=== PATIENT | female | born 1985 | race Caucasian/White ===

== ENCOUNTER 2016-11-04 16:16 | Inpatient (IN) ==
--- NOTE | 2016-11-04 16:24 | Emergency Department Note ---
Disposition Clinical Impression: Suicidal ideation Depression Qualifiers: Depression Type: unspecified Qualified Code(s): F32.9 - Major depressive disorder, single episode, unspecified Disposition: Admitted As Inpatient Condition: Good Forms: ED Satisfaction Letter Time of Disposition: 19:42 Psych HPI - General Chief Complaint: ED Psychiatric Symptoms Stated Complaint: 1A Eval Time Seen by Provider: 11/04/16 16:18 Source: patient, family Mode of arrival: ambulatory Limitations: no limitations Nursing Notes Reviewed: Yes Vital Signs Reviewed: Yes - History of Present Illness HPI Narrative: 31-year-old female with a history of depression comes in with suicidal ideation. She states that she tried to take a bottle sleeping pills last night but her significant other took them away from her and she was not able to take them. Family doctor today she was still complaining of suicidal ideation and she was sent here for evaluation. Pt complaint: suicidal ideation, feels depressed If medical clearance, reason: psychiatric condition Onset (ago): Just [employer] Duration: constant History of similar episodes: Yes Improves with: none Worsens with: none Context: significant life stressor Associated Psychiatric Symptoms: depression, suicidal ideation Associated symptoms: Reports: denies other symptoms Traumatic symptoms: denies traumatic injury Treatments prior to arrival: none - Related Data Home Medications Medication Instructions Recorded Confirmed Desvenlafaxine Fumarate 50 mg PO DAILY 11/17/15 09/13/16 [Desvenlafaxine Fumarate ER] Estradiol 2 mg PO DAILY 11/17/15 09/13/16 Topiramate [Topamax] 100 mg PO BID 11/17/15 09/13/16 Buspirone HCl [Buspar] 30 mg PO BID 09/13/16 09/13/16 Zaleplon [Sonata] 10 mg PO DAILY 09/13/16 09/13/16 Ziprasidone HCl [Geodon] 60 mg PO BID 09/13/16 09/13/16 Allergies Allergy/AdvReac Type Severity Reaction Status Date / Time Penicillins Allergy Difficulty Verified 11/04/16 16:25 Breathing Constitutional: Denies: fever, chills, weakness, weight change Eyes: Denies: eye pain, eye discharge, vision change ENT ED: Denies: ear pain, throat pain, dental pain, hearing loss, epistaxis, congestion, dysphagia Cardiovascular: Denies: chest pain, palpitations, dyspnea on exertion, edema, syncope Respiratory: Denies: cough, dyspnea, wheezes, hemoptysis, stridor Gastrointestinal: Denies: abdominal pain, nausea, vomiting, diarrhea, constipation, hematemesis, melena, hematochezia Genitourinary: Denies: dysuria, frequency, hematuria, discharge Musculoskeletal: Denies: back pain, neck pain, arthralgia, myalgia Integumentary: Denies: rash, abrasion, lesions Neurological: Denies: headache, weakness, numbness, paresthesias, confusion, abnormal gait, vertigo Psychiatric: Reports: depression, suicidal thoughts. Denies: anxiety, homicidal thoughts, auditory hallucinations, visual hallucinations Endocrine: Denies: fatigue Hematological/Lymphatic: Denies: easy bleeding, easy bruising Allergic/Immunologic: Denies: facial swelling, urticaria Past Medical History - Past Medical History Medical history: Reports: GERD, migraine, other Surgical history: Reports: cholecystectomy, hysterectomy Psychiatric history: Reports: anxiety, bipolar, depression CASING MAN history: Reports: non-contributory - Social History Smoking Status: Current every day smoker Smokeless Tobacco Status: No Alcohol use: Reports: occasionally Drug use: Reports: none Physical Exam - General Limitations: no limitations General appearance: alert, in no apparent distress - Head Head exam: atraumatic, normocephalic, normal inspection - Eye Eye exam: Present: normal appearance, PERRL, EOMI - ENT ENT exam: normal exam, normal oropharynx, mucous membranes moist - Neck Neck exam: Present: normal inspection, full ROM, trachea midline - Chest Chest inspection: Present: normal inspection, symmetric chest wall rise - Respiratory Respiratory exam: Present: normal lung sounds bilaterally - Cardiovascular Cardiovascular exam: Present: regular rate, normal rhythm, normal heart sounds - Abdominal Exam Abdominal exam: Present: soft, Non-Tender. Absent: tenderness, distention, guarding, rebound, rigidity - Extremities Exam Extremities exam: Present: normal inspection, full ROM. Absent: tenderness, pedal edema - Expanded Lower Extremity Exam Neurovascular/Tendon exam: Absent: motor deficit, sensory deficit, tendon deficit Gait: observed and normal - Back Exam Back exam: Present: normal inspection, full ROM. Absent: tenderness - Neurological Exam Neurological exam: Present: alert, oriented X3. Absent: motor sensory deficit - Psychiatric Psychiatric exam: Present: depressed, suicidal ideation - Skin Skin exam: Present: warm, dry, intact, normal color Course - Reevaluation(s) Reevaluation #1: 31-year-old with history depression and attempted to take 7 pills in a suicide attempt. Continues to have suicidal ideation. Patient was evaluated by psychiatry and will be admitted. Time: 19:41 Vital Signs Temperature 98.6 F 11/04/16 16:22 Pulse Rate 59 11/04/16 16:22 Respiratory Rate 16 11/04/16 16:22 Blood Pressure 111/76 11/04/16 16:22 O2 Sat by Pulse Oximetry 97 11/04/16 16:22 Temperature 98.6 F 11/04/16 16:22 Pulse Rate 59 11/04/16 16:22 Respiratory Rate 16 11/04/16 16:22 Blood Pressure 111/76 11/04/16 16:22 O2 Sat by Pulse Oximetry 97 11/04/16 16:22 Oxygen Delivery Oxygen Delivery Room Air Psych - Lab Data Result diagrams: 11/04/16 16:31 11/04/16 16:31 Lab Results 11/04/16 11/04/16 11/04/16 Range/Units 16:31 16:31 16:31 WBC 9.9 (4.3-11.1) K/mcL RBC 4.13 (3.82-4.97) M/mcL Hgb 12.7 (11.5-15.4) g/dL Hct 38.0 (35.3-44.9) % MCV 92.0 (83.0-100.0) fL MCH 30.8 (28.0-33.3) pg MCHC 33.4 (31.6-35.5) g/dL RDW 12.5 (11.5-14.5) % Plt Count 208 (140-400) K/mcL MPV 9.8 (9.4-12.4) fL Immature Gran % 0.3 (0-4) % Seg Neutrophils % 64.3 % Lymphocytes % 27.8 % Monocytes % 5.8 % Eosinophils % 1.3 % Basophils % 0.5 % Neutrophils # 6.4 (1.6-8.9) K/mcL Lymphocytes # 2.8 (0.6-4.6) K/mcL Monocytes # 0.6 (0.0-1.3) K/mcL Eosinophils # 0.1 (0.0-0.6) K/mcL Basophils # 0.1 (0.0-0.2) K/mcL Sodium 140 (136-145) mEq/L Potassium 3.8 (3.5-4.5) mEq/L Chloride 113 H (98-109) mEq/L Carbon Dioxide 17 L (19-29) mEq/L BUN 13 (7-20) mg/dL Creatinine 1.23 H (0.57-1.11) mg/dL Est GFR ( Amer) > 60 (> 60) Est GFR (Non-Af Amer) 51 L (> 60) BUN/Creatinine Ratio 11 (6-26) Glucose 88 (70-99) mg/dL Calculated Osmolality 290 (280-300) Calcium 9.1 (8.6-10.8) mg/dL Serum , Qual Negative (Negative) Urine Color (Yellow) Urine Clarity (Clear) Urine pH (5.0-8.0) pH Units Ur Specific [place] (1.010-1.025) Urine Protein (Neg-Trace) mg/dL Urine Glucose (UA) (Normal) mg/dL Urine Ketones (Negative) mg/dL Urine Blood (Negative) Urine Nitrite (Negative) Urine Bilirubin (Negative) Urine Urobilinogen (Normal) mg/dL Ur Leukocyte Esterase (Negative) Urine Microscopic RBC (0-3) per hpf Urine Microscopic WBC (0-3) per hpf Ur Squamous Epith Cells (None-Few) per lpf Urine Bacteria (None-Few) per hpf Hyaline Casts (None-Few) per lpf Salicylates < 5.0 L (15-30) mg/dL Urine Opiates Screen (Garbnx=179) ng/mL Acetaminophen < 1.0 L (10-30) mcg/mL Ur Barbiturates Screen (Kmwadl=584) ng/mL Ur Phencyclidine Scrn (Cutoff=25) ng/mL Ur Amphetamines Screen (Fhwtgw=5267) ng/mL U Benzodiazepines Scrn (Tlzieh=534) ng/mL Urine Cocaine Screen (Cutoff= 300) ng/mL U Marijuana (THC) Screen (Cutoff = 50) ng/mL Ethyl Alcohol < 10 (0-10) mg/dL 11/04/16 11/04/16 Range/Units 16:45 16:45 WBC (4.3-11.1) K/mcL RBC (3.82-4.97) M/mcL Hgb (11.5-15.4) g/dL Hct (35.3-44.9) % MCV (83.0-100.0) fL MCH (28.0-33.3) pg MCHC (31.6-35.5) g/dL RDW (11.5-14.5) % Plt Count (140-400) K/mcL MPV (9.4-12.4) fL Immature Gran % (0-4) % Seg Neutrophils % % Lymphocytes % % Monocytes % % Eosinophils % % Basophils % % Neutrophils # (1.6-8.9) K/mcL Lymphocytes # (0.6-4.6) K/mcL Monocytes # (0.0-1.3) K/mcL Eosinophils # (0.0-0.6) K/mcL Basophils # (0.0-0.2) K/mcL Sodium (136-145) mEq/L Potassium (3.5-4.5) mEq/L Chloride (98-109) mEq/L Carbon Dioxide (19-29) mEq/L BUN (7-20) mg/dL Creatinine (0.57-1.11) mg/dL Est GFR ( Amer) (> 60) Est GFR (Non-Af Amer) (> 60) BUN/Creatinine Ratio (6-26) Glucose (70-99) mg/dL Calculated Osmolality (280-300) Calcium (8.6-10.8) mg/dL Serum , Qual (Negative) Urine Color Yellow (Yellow) Urine Clarity Cloudy A (Clear) Urine pH 6.0 (5.0-8.0) pH Units Ur Specific [place] 1.015 (1.010-1.025) Urine Protein Negative (Neg-Trace) mg/dL Urine Glucose (UA) Normal (Normal) mg/dL Urine Ketones Negative (Negative) mg/dL Urine Blood Negative (Negative) Urine Nitrite Negative (Negative) Urine Bilirubin Negative (Negative) Urine Urobilinogen Normal (Normal) mg/dL Ur Leukocyte Esterase Negative (Negative) Urine Microscopic RBC 0-3 (0-3) per hpf Urine Microscopic WBC 0-3 (0-3) per hpf Ur Squamous Epith Cells Many H (None-Few) per lpf Urine Bacteria Few (None-Few) per hpf Hyaline Casts None Seen (None-Few) per lpf Salicylates (15-30) mg/dL Urine Opiates Screen Negative (Ycfrrn=989) ng/mL Acetaminophen (10-30) mcg/mL Ur Barbiturates Screen Negative (Lnvnat=235) ng/mL Ur Phencyclidine Scrn Negative (Cutoff=25) ng/mL Ur Amphetamines Screen Negative (Mwzmve=8876) ng/mL U Benzodiazepines Scrn Negative (Tomaxf=307) ng/mL Urine Cocaine Screen Negative (Cutoff= 300) ng/mL U Marijuana (THC) Screen Negative (Cutoff = 50) ng/mL Ethyl Alcohol (0-10) mg/dL Psychiatric Medical Clearance - Medical Clearance Checklist Medical History: Bronchitis (Inactive) Insect bites (Inactive) Urinary tract infection (Inactive) No Social History Section defined Current Vitals: Last Vital Signs Temp 98.6 F 11/04/16 16:22 Pulse 59 11/04/16 16:22 Resp 16 11/04/16 16:22 BP 111/76 11/04/16 16:22 Pulse Ox 97 11/04/16 16:22 Psychiatric Lab Panel: Drug Levels and Toxicity 11/04/16 11/04/16 16:31 16:45 Urine Opiates Screen Negative Acetaminophen < 1.0 L Ur Barbiturates Screen Negative Ur Phencyclidine Scrn Negative Ur Amphetamines Screen Negative U Benzodiazepines Scrn Negative Urine Cocaine Screen Negative U Marijuana (THC) Screen Negative Ethyl Alcohol < 10 Abnormal Labs: Abnormal lab results Chloride 113 mEq/L (98-109) H 11/04/16 16:31 Carbon Dioxide 17 mEq/L (19-29) L 11/04/16 16:31 Creatinine 1.23 mg/dL (0.57-1.11) H 11/04/16 16:31 Est GFR (Non-Af Amer) 51 (> 60) L 11/04/16 16:31 Urine Clarity Cloudy (Clear) A 11/04/16 16:45 Ur Squamous Epith Cells Many per lpf (None-Few) H 11/04/16 16:45 Salicylates < 5.0 mg/dL (15-30) L 11/04/16 16:31 Acetaminophen < 1.0 mcg/mL (10-30) L 11/04/16 16:31 Statement of Medical Clearance: I have evaluated the patient, reviewed diagnostic information, and certify that the patient's medical condition is sufficiently stable that transfer to the psychiatric unit does not pose a significant risk of deterioration.
[2016-11-04 16:37] LABS: Basophils # 0.1 K/mcL (0.0-0.2); Basophils % 0.5 %; Eosinophils # 0.1 K/mcL (0.0-0.6); Eosinophils % 1.3 %; Hemoglobin 12.7 g/dL (11.5-15.4); Immature Granulocytes % 0.3 % (0-4); Lymphocytes # 2.8 K/mcL (0.6-4.6); Lymphocytes % 27.8 %; Mean Corpuscular HGB Conc 33.4 g/dL (31.6-35.5); Mean Corpuscular Hemoglobin 30.8 pg (28.0-33.3); Mean Platelet Volume 9.8 fL (9.4-12.4); Monocytes # 0.6 K/mcL (0.0-1.3); Monocytes % 5.8 %; Neutrophils # 6.4 K/mcL (1.6-8.9); Platelet Count 208 K/mcL (140-400); Red Blood Count 4.13 M/mcL (3.82-4.97); Red Cell Distribution Width 12.5 % (11.5-14.5); Segmented Neutrophils % 64.3 %
[2016-11-04 16:51] LABS: Bilirubin,Urine Negative (Negative); Blood,Urine Negative (Negative); Clarity,Urine Cloudy (Clear); Color,Urine Yellow (Yellow); Glucose,Urine (UA) Normal (Normal); Ketones,Urine Negative (Negative); Leukocyte Esterase,Urine Negative (Negative); Nitrite,Urine Negative (Negative); Protein,Urine Negative (Neg-Trace); Specific Gravity,Urine 1.015 (1.010-1.025); Urobilinogen,Urine Normal (Normal)
[2016-11-04 16:52] LABS: Bacteria,Urine Few per hpf (None-Few); Hyaline Casts,Urine None Seen per lpf (None-Few); RBC,Urine 0-3 per hpf (0-3); Squamous Epithelial Cell,Urine Many per lpf (None-Few); WBC,Urine 0-3 per hpf (0-3)
[2016-11-04 16:57] LABS: Amphetamine Screen,Urine Negative ng/mL (Cutoff=1000); Barbiturate Screen,Urine Negative ng/mL (Cutoff=200); Benzodiazepines Screen,Urine Negative ng/mL (Cutoff=200); Cannabinoid Screen,Urine Negative ng/mL (Cutoff = 50); Cocaine Screen,Urine Negative ng/mL (Cutoff= 300); Opiate Screen,Urine Negative ng/mL (Cutoff=300); Phencyclidine Screen,Urine Negative ng/mL (Cutoff=25)
[2016-11-04 16:59] LABS: BUN/Creatinine Ratio 11 (6-26); Blood Urea Nitrogen 13 mg/dL (7-20); Calcium 9.1 mg/dL (8.6-10.8); Carbon Dioxide 17 mEq/L (19-29); Chloride 113 mEq/L (98-109); Glucose 88 mg/dL (70-99); Osmolality,Calculated 290 (280-300); Potassium 3.8 mEq/L (3.5-4.5); Sodium 140 mEq/L (136-145); eGFR For African Americans > 60 (> 60); eGFR For Non-African Americans 51 (> 60)
[2016-11-04 17:00] LABS: Acetaminophen < 1.0 mcg/mL (10-30); Ethanol < 10 mg/dL (0-10); Salicylate < 5.0 mg/dL (15-30)
[2016-11-04] MEDS ORDERED: hydrOXYzine pamoate 25 MG CAPSULE PO STA (19:23)
[2016-11-04] MEDS ORDERED: Haloperidol Lactate 5 MG/ML VIAL IM PRN (20:15)
[2016-11-04] MEDS ORDERED: Mag Hydrox/Al Hydrox/Simeth 30 ML UDC PO PRN (20:15)
[2016-11-04] MEDS ORDERED: Ibuprofen 400 MG TABLET PO PRN (20:15)
[2016-11-04] MEDS ORDERED: *HR* LORazepam 2 MG/ML VIAL IM PRN (20:15)
[2016-11-04] MEDS ORDERED: *HR* LORazepam 1 MG TABLET PO PRN (20:15)
[2016-11-04] MEDS ORDERED: hydrOXYzine pamoate 25 MG CAPSULE PO PRN (20:15)
[2016-11-04] MEDS ORDERED: MOM Conc 10 ML UD.LIQ PO PRN (21:00)
[2016-11-04] MEDS: Nicotine 2 MG GUM BC PRN (21:57)
[2016-11-04] MEDS: traZODone 50 MG TABLET PO PRN (21:57)
[2016-11-05] MEDS ORDERED: hydrOXYzine pamoate 25 MG CAPSULE PO PRN (10:14)
[2016-11-05] MEDS ORDERED: clonazePAM 0.5 MG TABLET PO PRN (10:28)
--- NOTE | 2016-11-05 10:32 | Psychiatry History & Physical ---
Date of Encounter: 11/05/16 Time of Encounter: 09:30 History of Present Illness Patient Stated Chief Complaint: Suicidal, auditory and visual hallucinations Medicare Admission Attestation: For traditional Medicare patients the provided hospital inpatient services are reasonable and necessary and in the case of services not specified as inpatient -only under 42 CFR 419.22 (n), that they are appropriately provided as inpatient services in accordance 42 CFR 412.3. For Critical Access Hospital the patient may reasonably be expected to be discharged or transferred to a hospital within 96 hours after admission to the Critical Access Hospital. Admitted From: Emergency Dept History of Present Illness: Ms. Alba is a 31 year old female admitted from the emergency department for evaluation treatment of suicidal ideation and auditory and visual hallucinations. Patient was reported to attempt to overdose on sleeping medication and was stopped by her she was combative and agitated with him. Patient reports long history of psychiatric treatment since she was 15 she was hospitalized for overdose at the age since then she was seen by psychiatrist as outpatient and she reports recently feeling frustrated because her auditory and visual hallucination continue and her suicidal ideation become intense patient states she is compliant with medication but feel it is ineffective. 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 Past Med Surg Social Fam HX - Past Medical History Medical history: GERD, migraine, other - Past Psychiatric History Psychiatric history: Reports: anxiety, depression, prior suicide attempt, schizophrenia, previous psychiatric hospitalization Past psychiatric history details: Hospitalized at age [age] years old in [place] overdose on medication - Past Surgical History Surgical History: cholecystectomy, hysterectomy - Social History Smoking Status: Current every day smoker Smokeless Tobacco Status: No Alcohol use: occasionally Drug use: none Medications & Allergies Estradiol 2 mg PO DAILY 11/17/15 [History] Topiramate [Topamax] 100 mg PO BID 11/17/15 [History] Buspirone HCl [Buspar] 30 mg PO BID 09/13/16 [History] Zaleplon [Sonata] 10 mg PO DAILY 09/13/16 [History] Ziprasidone HCl [Geodon] 60 mg PO BID 09/13/16 [History] Desvenlafaxine Succinate [Pristiq ER] 50 mg PO DAILY 11/04/16 [History] clonazePAM [Klonopin] 0.25 mg PO QAM 11/04/16 [History] clonazePAM [Klonopin] 0.5 mg PO QPM 11/04/16 [History] hydrOXYzine HCl [Hydroxyzine HCl] 25 mg PO BID PRN 11/04/16 [History] 3 Allergy/AdvReac Type Severity Reaction Status Date / Time Penicillins Allergy Difficulty Verified 11/04/16 16:25 Breathing Review of Systems Psychiatric: Reports: depression, anxiety, auditory hallucinations, visual hallucinations Mental Status Exam Patient orientation: Yes Person, Yes Time, Yes Place Level of alertness: Alert Patient appearance: Appropriate, Well Groomed Behavior: calm, cooperative, anxious, guarded, dramatic Psychomotor activity: Slowed Eye contact: Maintains Eye Contact Mood description: Depressed, Irritable Affect description: congruent with mood, constricted, dysphoric Speech pattern: Normal rate, Normal rhythm, Normal tone, Includes Profanity Speech volume: Normal Thought process: Linear, Goal Oriented, Thought Blocking Thought content: Yes Suicidal ideation, No Homicidal ideation, No Overt delusions Perceptual disturbances: Yes Auditory hallucinations, Yes Visual hallucinations Attention span: Capable of Focused Attention Memory description: Grossly Intact Patient reliability: Reliable Historian Intelligence estimate: Average Judgment: Limited Insight: Partial Results - Vital Signs Vital signs: Temp Pulse Resp BP Pulse Ox 97.6 F 53 16 104/58 97 11/05/16 09:19 11/05/16 09:19 11/05/16 09:19 11/05/16 09:19 11/04/16 16:22 - Labs Labs: Laboratory Last Values WBC 9.9 K/mcL (4.3-11.1) 11/04/16 16:31 RBC 4.13 M/mcL (3.82-4.97) 11/04/16 16:31 Hgb 12.7 g/dL (11.5-15.4) 11/04/16 16:31 Hct 38.0 % (35.3-44.9) 11/04/16 16:31 MCV 92.0 fL (83.0-100.0) 11/04/16 16:31 MCH 30.8 pg (28.0-33.3) 11/04/16 16:31 MCHC 33.4 g/dL (31.6-35.5) 11/04/16 16:31 RDW 12.5 % (11.5-14.5) 11/04/16 16:31 Plt Count 208 K/mcL (140-400) 11/04/16 16:31 MPV 9.8 fL (9.4-12.4) 11/04/16 16:31 Immature Gran % 0.3 % (0-4) 11/04/16 16:31 Seg Neutrophils % 64.3 % 11/04/16 16:31 Lymphocytes % 27.8 % 11/04/16 16:31 Monocytes % 5.8 % 11/04/16 16:31 Eosinophils % 1.3 % 11/04/16 16:31 Basophils % 0.5 % 11/04/16 16:31 Neutrophils # 6.4 K/mcL (1.6-8.9) 11/04/16 16:31 Lymphocytes # 2.8 K/mcL (0.6-4.6) 11/04/16 16:31 Monocytes # 0.6 K/mcL (0.0-1.3) 11/04/16 16:31 Eosinophils # 0.1 K/mcL (0.0-0.6) 11/04/16 16:31 Basophils # 0.1 K/mcL (0.0-0.2) 11/04/16 16:31 Sodium 140 mEq/L (136-145) 11/04/16 16:31 Potassium 3.8 mEq/L (3.5-4.5) 11/04/16 16:31 Chloride 113 mEq/L (98-109) H 11/04/16 16:31 Carbon Dioxide 17 mEq/L (19-29) L 11/04/16 16:31 BUN 13 mg/dL (7-20) 11/04/16 16:31 Creatinine 1.23 mg/dL (0.57-1.11) H 11/04/16 16:31 Est GFR ( Amer) > 60 (> 60) 11/04/16 16:31 Est GFR (Non-Af Amer) 51 (> 60) L 11/04/16 16:31 BUN/Creatinine Ratio 11 (6-26) 11/04/16 16:31 Glucose 88 mg/dL (70-99) 11/04/16 16:31 Calculated Osmolality 290 (280-300) 11/04/16 16:31 Calcium 9.1 mg/dL (8.6-10.8) 11/04/16 16:31 Serum , Qual Negative (Negative) 11/04/16 16:31 Urine Color Yellow (Yellow) 11/04/16 16:45 Urine Clarity Cloudy (Clear) A 11/04/16 16:45 Urine pH 6.0 pH Units (5.0-8.0) 11/04/16 16:45 Ur Specific [place] 1.015 (1.010-1.025) 11/04/16 16:45 Urine Protein Negative mg/dL (Neg-Trace) 11/04/16 16:45 Urine Glucose (UA) Normal mg/dL (Normal) 11/04/16 16:45 Urine Ketones Negative mg/dL (Negative) 11/04/16 16:45 Urine Blood Negative (Negative) 11/04/16 16:45 Urine Nitrite Negative (Negative) 11/04/16 16:45 Urine Bilirubin Negative (Negative) 11/04/16 16:45 Urine Urobilinogen Normal mg/dL (Normal) 11/04/16 16:45 Ur Leukocyte Esterase Negative (Negative) 11/04/16 16:45 Urine Microscopic RBC 0-3 per hpf (0-3) 11/04/16 16:45 Urine Microscopic WBC 0-3 per hpf (0-3) 11/04/16 16:45 Ur Squamous Epith Cells Many per lpf (None-Few) H 11/04/16 16:45 Urine Bacteria Few per hpf (None-Few) 11/04/16 16:45 Hyaline Casts None Seen per lpf (None-Few) 11/04/16 16:45 Salicylates < 5.0 mg/dL (15-30) L 11/04/16 16:31 Urine Opiates Screen Negative ng/mL (Swkijd=860) 11/04/16 16:45 Acetaminophen < 1.0 mcg/mL (10-30) L 11/04/16 16:31 Ur Barbiturates Screen Negative ng/mL (Zzurbp=142) 11/04/16 16:45 Ur Phencyclidine Scrn Negative ng/mL (Cutoff=25) 11/04/16 16:45 Ur Amphetamines Screen Negative ng/mL (Crtyoa=6576) 11/04/16 16:45 U Benzodiazepines Scrn Negative ng/mL (Ffccdn=991) 11/04/16 16:45 Urine Cocaine Screen Negative ng/mL (Cutoff= 300) 11/04/16 16:45 U Marijuana (THC) Screen Negative ng/mL (Cutoff = 50) 11/04/16 16:45 Ethyl Alcohol < 10 mg/dL (0-10) 11/04/16 16:31 Assessment and Plan (1) Depression Current visit: Yes Status: Acute Plan: Admit inpatient for safety and stabilization, Close observation, Suicide Precautions per unit protocol, Encourage participation in unit milieu, Group Therapy, Monitor sleep, Monitor appetite Additional Plan: 1. Start Abilify 5 mg daily 2. Decrease Geodon to 60 mg daily at bedtime 3. Change Klonopin to when necessary 4. Replace Pristiq with Effexor XR 75 mg daily Risks, benefits, side effects, alternatives discussed w/pt: Yes Patient agreeable to treatment: Yes Qualifiers: Depression Type: major depressive disorder Major depression recurrence: recurrent Major depression episode severity: severe Psychotic features: with psychotic features Qualified Code(s): F33.3 - Major depressive disorder, recurrent, severe with psychotic symptoms
[2016-11-05] MEDS: ARIPiprazole 5 MG TABLET PO SCH (11:31)
[2016-11-05] MEDS: Venlafaxine XR (24 HR) 75 MG CAP.ER.24H PO SCH (11:31)
[2016-11-05] MEDS ORDERED: clonazePAM 0.5 MG TABLET PO SCH (18:00)
[2016-11-05] MEDS: Nicotine 2 MG GUM BC PRN (19:13)
[2016-11-05] MEDS: Topiramate 100 MG TABLET PO SCH (20:12)
[2016-11-05] MEDS: traZODone 50 MG TABLET PO PRN (20:14)
[2016-11-05] MEDS ORDERED: ZIPRASIDONE HCL 60 MG PO SCH (21:00)
[2016-11-05] MEDS ORDERED: Ziprasidone 20 MG CAPSULE PO SCH (21:00)
[2016-11-06] MEDS ORDERED: Venlafaxine XR (24 HR) 75 MG CAP.ER.24H PO SCH (09:00)
[2016-11-06] MEDS: Venlafaxine XR (24 HR) 75 MG CAP.ER.24H PO SCH (09:41)
[2016-11-06] MEDS: ARIPiprazole 5 MG TABLET PO SCH (09:42)
[2016-11-06] MEDS: Topiramate 100 MG TABLET PO SCH (09:42)
[2016-11-06 10:07] VITALS: BP 105/55
[2016-11-06] MEDS: Nicotine 2 MG GUM BC PRN (10:09)
--- NOTE | 2016-11-06 13:20 | Discharge Summary ---
Date of Encounter: 11/06/16 Time of Encounter: 13:13 Diagnosis - Discharge Diagnosis (1) Depression Status: Acute Qualifiers: Depression Type: major depressive disorder Major depression recurrence: recurrent Major depression episode severity: severe Psychotic features: with psychotic features Qualified Code(s): F33.3 - Major depressive disorder, recurrent, severe with psychotic symptoms Medications - Discharge Medications Prescriptions: ARIPiprazole [Abilify] 5 mg PO DAILY #30 tablet clonazePAM [Klonopin] 0.5 mg PO TID PRN #30 tablet PRN Reason: Anxiety Venlafaxine XR (24 HR) [Effexor XR] 75 mg PO DAILY #30 cap.er.24h Estradiol 2 mg PO DAILY 11/17/15 [History] Topiramate [Topamax] 100 mg PO BID 11/17/15 [History] Buspirone HCl [Buspar] 30 mg PO BID 09/13/16 [History] Zaleplon [Sonata] 10 mg PO DAILY 09/13/16 [History] ARIPiprazole [Abilify] 5 mg PO DAILY #30 tablet 11/06/16 [Rx] Venlafaxine XR (24 HR) [Effexor XR] 75 mg PO DAILY #30 cap.er.24h 11/06/16 [Rx] Ziprasidone [Geodon] 60 mg PO HS capsule 11/06/16 [Rx] clonazePAM [Klonopin] 0.5 mg PO TID PRN #30 tablet 11/06/16 [Rx] 3 Allergy/AdvReac Type Severity Reaction Status Date / Time Penicillins Allergy Difficulty Verified 11/04/16 16:25 Breathing Provider Date of admission: 11/04/16 19:46 Primary care physician: PCP NONE Discharging clinician: Frederick Nichols Assessment and Plan - Patient/Caregiver Discharge Instructions Activity: resume usual activities as tolerated Diet: regular diet - Follow up Plan Follow up with: Damian Dudley [facility] [Outside] - 11/17/16 1:30 pm (The above appointment is with Amrik. When you come to your first appointment, you will be completing paperwork, meeting with a counselor, and developing a treatment plan. You will receive follow-up appointments for on-going counseling services. You were also scheduled to see Erika Juárez on 12/08/2016 at 8: 00am for outpatient psychiatric assessment and medication management services. Please bring the following with you to your first visit to the clinic: 1) proof of household income (two consecutive pay stubs, social security award letter, bank statement, statement letter from [facility], child support statement, IRS 1040 or W2 form, or a statement from the person who financially supports you stating they help provide for your basic needs), 2) proof of residency ( drivers license, a piece of mail showing your address, a statement from person you live with verifying you live at their address), 3) your social security card , 4) photo ID, 5) your insurance card (if you have commercial insurance you must call to obtain a prior authorization number before you arrive to your first appointment) and 6) if you do not have insurance but have applied for Medicaid, please bring verification you have applied. This is the first available appointment. You may contact the office regularly to check for cancellations that may allow you to be seen sooner. ) Functional capacity at discharge: independent ambulation Overall status at discharge: Stable Disposition: Home, Self-Care Hospital Course Hospital course: Ms. Alba is a 31 year old female admitted from the emergency department after attempting overdose on medication to kill herself. Patient had history of suicide attempt when she was 15 years old. For details of the admission please see H&P On the unit patient medication were adjusted to Geodon was reduced to 60 mg at bedtime and we added Abilify 5 mg daily. Patient responded well to medication changes reported no auditory or visual hallucinations denied any suicidal ideation and participated in some activities and reported improved sleep. Patient was advised to continue hospitalization and stabilization however she insisted on being discharged in order for her to keep her job and she is scheduled to work tomorrow. On discharge patient was medically stable tolerated the medication denied any side effects, her discharge and follow-up plans were completed by social work. - Time Spent with Patient Total time spent providing and/or coordinating discharge services: Greater than 30 minutes Quality - Multiple Antipsychotics Patient discharged on 2 or more antipsychotic medications: No Procedures - Procedures Procedures: Medication Management, Crisis Stabilization, Supportive Therapy, Group Therapy, Psychoeducational Therapy Mental Status Exam - Mental Status Exam Patient orientation: Yes Person, Yes Time, Yes Place Level of alertness: Alert Patient appearance: Appropriate, Well Groomed Behavior: calm, cooperative Psychomotor activity: Normal Eye contact: Maintains Eye Contact Mood description: Euthymic/stable Affect description: congruent with mood, full range Speech pattern: Normal rate, Normal rhythm, Normal tone Speech Volume: Normal Thought process: Linear, Goal Oriented Thought Content: No Suicidal ideation, No Homicidal ideation, No Overt delusions Perceptual Disturbances: No Auditory hallucinations, No Visual hallucinations Judgment: Limited Insight: Partial
== END 2016-11-06 16:10 | disposition home or self-care (01) | DRG 751 ==
LOC: EMEROO 16:16 → 1ANU 19:46
PROVIDERS: ADMIT Psychiatry & Neurology Psychiatry; ATTEND Psychiatry & Neurology Psychiatry

== ENCOUNTER 2017-03-25 06:13 | Inpatient (IN) ==
[2017-03-25] MEDS ORDERED: Ibuprofen 400 MG TABLET PO PRN (06:34)
[2017-03-25] MEDS ORDERED: *HR* LORazepam 2 MG/ML VIAL IM PRN (06:34)
[2017-03-25] MEDS ORDERED: Nicotine 2 MG GUM BC PRN (06:34)
[2017-03-25] MEDS ORDERED: hydrOXYzine pamoate 25 MG CAPSULE PO PRN (06:34)
[2017-03-25] MEDS ORDERED: *HR* LORazepam 1 MG TABLET PO PRN (06:34)
[2017-03-25] MEDS ORDERED: Haloperidol Lactate 5 MG/ML VIAL IM PRN (06:34)
[2017-03-25] MEDS ORDERED: MOM Conc 10 ML UD.LIQ PO PRN (06:34)
[2017-03-25] MEDS ORDERED: Mag Hydrox/Al Hydrox/Simeth 30 ML UDC PO PRN (06:34)
[2017-03-25] MEDS ORDERED: traZODone 50 MG TABLET PO PRN (06:34)
--- NOTE | 2017-03-25 16:35 | Psychiatry History & Physical ---
Date of Encounter: 03/25/17 Time of Encounter: 16:00 History of Present Illness Patient Stated Chief Complaint: i want to go home Medicare Admission Attestation: For traditional Medicare patients the provided hospital inpatient services are reasonable and necessary and in the case of services not specified as inpatient -only under 42 CFR 419.22 (n), that they are appropriately provided as inpatient services in accordance 42 CFR 412.3. For Critical Access Hospital the patient may reasonably be expected to be discharged or transferred to a hospital within 96 hours after admission to the Critical Access Hospital. Admitted From: Emergency Dept Plans for Post Hospital Care: Home History of Present Illness: Ms. Alba is a 31 year old female Patient reports that he was she was in her usual state of mood. She says that she is awoken by her after taking medicines and that he could have made her take say anything. Patient was evaluated by mental [facility] and placed on a pink slip because she stated that she would take an overdose or cut her wrist with box cutters. Patient denies this. The patient's history is significant for a diagnosis of either bipolar disorder or in October 2016 she was diagnosed with major depressive disorder severe with psychosis. The patient says that her medicines were being tapered down and that she did not problem and in fact that she is not suicidal and she should leave in fact she is going to walk 35 miles in the dark because she is prepared. The patient reported no mood problems she notes ups and downs and 12 years of marriage. Additional history was collected from the patient's he reported that she has had significant mood swings since an adjustment medicine she has been self administering her medicine and Ativan or lorazepam and sometimes is amnestic for things that occur. The patient's past psychiatric history significant for one hospitalization here one hospitalization for 1 week in [facility] after trying to jump out a moving car. This was for 10 days. Past medical history surgeries include gallbladder hysterectomy. Allergies to penicillin. Patient has an illness migraine headaches she has been on Peter venlafaxine Geodon reduction and Topamax and Xanax she is followed by her primary care doctor. She may have also been on estrogen. She is stably employed and did not want to miss work. 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 She has been 12 years. Her works outside the home transporting others. She felt that he was leaving in the hospital babysat however the reported that he did have to make one run for approximately 12 hours on 1 day. There are 2 children in the home. Patient noted no legal problems Past Med Surg Social Fam HX - Past Medical History Medical history: GERD, migraine, other - Past Psychiatric History Psychiatric history: Reports: depression, prior suicide attempt, previous psychiatric hospitalization Family psychiatric history: Yes Family History of Suicide: None - Past Surgical History Surgical History: cholecystectomy, hysterectomy - Social History Smoking Status: Current every day smoker Smokeless Tobacco Status: No Alcohol use: occasionally Drug use: none Occupational status: employed Current living situation: Home - Independent Activity Level: Independent ambulation Recent Out of Country Travel Within the Last 8 Weeks: No Exposure or Possible Exposure to Illness During Travel: No Medications & Allergies Estradiol 0.5 mg PO DAILY 11/17/15 [History] Topiramate [Topamax] 100 mg PO BID 11/17/15 [History] Desvenlafaxine [Desvenlafaxine ER] 100 mg PO DAILY 03/24/17 [History] Ziprasidone [Geodon] 80 mg PO HS 03/24/17 [History] Alprazolam [Xanax] 2 mg PO TID PRN 03/25/17 [History] 3 Allergy/AdvReac Type Severity Reaction Status Date / Time Penicillins Allergy Difficulty Verified 03/24/17 23:35 Breathing Review of Systems Neurological: Reports: headache Mental Status Exam Patient orientation: Yes Person, Yes Time, Yes Place, Yes Circumstance Level of alertness: Alert Patient appearance: Well Groomed Behavior: aggressive, hostile Psychomotor activity: Increased Eye contact: Minimal Contact Mood description: Angry Affect description: dysphoric Speech pattern: Normal rate, Normal rhythm Speech volume: Normal Thought process: Logical Thought content: Yes Suicidal ideation Attention span: Capable of Focused Attention Memory description: Grossly Intact Patient reliability: Questionable Historian Intelligence estimate: Above [place] Judgment: Limited Insight: Minimal Exam - HEENT Head exam IM: Present: atraumatic, normal inspection, normocephalic Eye exam IM: Present: EOMI ENT exam IM: Present: mucous membranes moist - Neurological Neurological exam IM: Present: normal gait - Extremities Extremities exam IM: Present: warm - Skin Skin exam IM: Present: warm Results - Vital Signs Vital signs: Temp Pulse Resp BP 98.4 F 48 16 90/52 03/25/17 06:25 03/25/17 06:25 03/25/17 06:25 03/25/17 06:25 Assessment and Plan (1) Severe recurrent major depressive disorder with psychotic symptoms Current visit: Yes Status: Acute Plan: Admit inpatient for safety and stabilization, Close observation Risks, benefits, side effects, alternatives discussed w/pt: No Patient agreeable to treatment: No Estimated Length of Stay (Days): 5 (2) Suicidal behavior with attempted self-injury Current visit: Yes Status: Acute
[2017-03-25] MEDS: ALPRAZolam 1 MG TABLET PO PRN ×2 (17:12→22:42)
[2017-03-25] MEDS ORDERED: Ziprasidone 20 MG CAPSULE PO SCH (21:00)
[2017-03-25] MEDS: Topiramate 100 MG TABLET PO SCH (22:42)
[2017-03-26 03:54] VITALS: BP 102/55
[2017-03-26] MEDS ORDERED: Venlafaxine XR (24 HR) 150 MG CAP.ER.24H PO SCH (09:00)
[2017-03-26] MEDS: Topiramate 100 MG TABLET PO SCH (09:37)
[2017-03-26] MEDS: ALPRAZolam 1 MG TABLET PO PRN (13:36)
--- NOTE | 2017-03-26 15:42 | Psychiatry Progress Note ---
Date of Encounter: 03/26/17 Time of Encounter: 15:30 Results - Vital Signs Vital Signs: Temp Pulse Resp BP 98 F 68 14 102/55 03/25/17 21:00 03/25/17 21:00 03/25/17 21:00 03/25/17 21:00 Assessment and Plan (1) Severe recurrent major depressive disorder with psychotic symptoms Current visit: Yes Status: Acute Risks, benefits, side effects, alternatives discussed w/pt: No Patient agreeable to treatment: No (2) Suicidal behavior with attempted self-injury Current visit: Yes Status: Acute Consult Discharge Plan - Plan Referrals: Shmuel Kwan, [employer] [Non-Partnered Physician] -
--- NOTE | 2017-03-26 16:11 | Discharge Summary ---
Date of Encounter: 03/26/17 Time of Encounter: 16:00 Diagnosis - Discharge Diagnosis (1) Severe recurrent major depressive disorder with psychotic symptoms Status: Acute (2) Suicidal behavior with attempted self-injury Status: Resolved Medications - Discharge Medications Estradiol 0.5 mg PO DAILY 11/17/15 [History] Topiramate [Topamax] 100 mg PO BID 11/17/15 [History] Desvenlafaxine [Desvenlafaxine ER] 100 mg PO DAILY 03/24/17 [History] Ziprasidone [Geodon] 80 mg PO HS 03/24/17 [History] Alprazolam [Xanax] 2 mg PO TID PRN 03/25/17 [History] ALPRAZolam [Xanax 1 MG Tablet] 2 mg PO TID PRN 30 Days #60 tablet 03/26/17 [Rx] Estradiol [Estrace] 0.5 mg PO DAILY tablet 03/26/17 [Rx] Topiramate [Topamax] 100 mg PO BID tablet 03/26/17 [Rx] Venlafaxine XR (24 HR) [Effexor Xr] 150 mg PO DAILY cap.er.24h 03/26/17 [Rx] Ziprasidone [Geodon] 80 mg PO HS capsule 03/26/17 [Rx] 3 Allergy/AdvReac Type Severity Reaction Status Date / Time Penicillins Allergy Difficulty Verified 03/24/17 23:35 Breathing Provider Date of admission: 03/25/17 06:16 Primary care physician: PCP NONE Discharging clinician: Grabiel Winkler Assessment and Plan - Patient/Caregiver Discharge Instructions Activity: resume usual activities as tolerated Diet: regular diet - Follow up Plan Follow up with: Shmuel Kwan, BIOINFORMATICIST [Non-Partnered Physician] - Functional capacity at discharge: independent ambulation Overall status at discharge: patient is progressing back to baseline Disposition: Home, Self-Care Hospital Course Hospital course: Ms. Alba is a 31 year old female She was admitted to the unit. The patient was reviewed. The patient had no significant suicidal behaviors suicidal statements homicidal behaviors psychosis. The patient did have an intense intense mood and affect.. The mood was dysphoric and irritable. Nonetheless the patient did not evidence hallucinations delusions or cognitive impairment or severe mood disturbance that would interfere with her ability to see Annia own needs. The patient was able to verbalize her next follow-up appointment with her primary care with her mental health needs. She was able to identify who could give her ride. There was discussion with her and the person giving her ride prior to discharge. Patient had an adequate supply of medicine she is being tapered off topiramate. This will be left to the prescriber. No prescription given upon discharge - Time Spent with Patient Total time spent providing and/or coordinating discharge services: Less than 30 minutes Quality - Multiple Antipsychotics Patient discharged on 2 or more antipsychotic medications: No Procedures - Procedures Procedures: Medication Management, Crisis Stabilization, Supportive Therapy Mental Status Exam - Mental Status Exam Patient orientation: Yes Person, Yes Time, Yes Place Level of alertness: Alert Patient appearance: Appropriate, Well Groomed Behavior: calm, cooperative, guarded Psychomotor activity: Normal Eye contact: Maintains Eye Contact Mood description: Euthymic/stable, Angry Affect description: congruent with mood, full range, dysphoric Speech pattern: Normal rate, Normal rhythm, Normal tone Speech Volume: Normal Thought process: Linear, Goal Oriented Thought Content: No Suicidal ideation, No Homicidal ideation, No Overt delusions Perceptual Disturbances: No Auditory hallucinations, No Visual hallucinations Judgment: Limited Insight: Partial
== END 2017-03-26 18:10 | disposition home or self-care (01) | DRG 751 ==
LOC: 1ANU 06:16
PROVIDERS: ADMIT Psychiatry & Neurology Forensic Psychiatry; ATTEND Psychiatry & Neurology Forensic Psychiatry

== ENCOUNTER 2017-05-31 02:32 | Inpatient (IN) ==
--- NOTE | 2017-05-31 04:46 | Internal Med History&Physical ---
<Bebo Garcia - Last Filed: 05/31/17 05:59> Date of Encounter: 05/31/17 Time of Encounter: 04:56 Assessment and Plan (1) Drug overdose Current visit: No Status: Acute Ingestion of (#30) 40 mg Geodon tablets on 05/30/17. Denies suicidal or homicidal ideation however she reports it was an intentional ingestion provoked by her . Prior history of psychiatric hospitalization for suicidal ideation. Observation for cardiac dysrhythmia in the setting of Geodon ingestion. Telemetry Repeat EKG Sitter and suicide precautions Psychiatric consultation PATIENT IS PINK SLIPPED. CANNOT LEAVE AMA Qualifiers: Encounter type: initial encounter Injury intent: intentional self-harm Qualified Code(s): T50.902A - Poisoning by unspecified drugs, medicaments and biological substances, intentional self-harm, initial encounter (2) Depression Current visit: No Status: Chronic Psychiatric consultation for intentional drug ingestion. Qualifiers: Depression Type: major depressive disorder Major depression recurrence: recurrent Active/Remission status: currently active Major depression episode severity: severe Psychotic features: without psychotic features Qualified Code(s): F33.2 - Major depressive disorder, recurrent severe without psychotic features Internal Medicine - H&P: HPI Chief complaint: Intentional overdose Admitted From: Emergency Dept Plans for Post Hospital Care: Transfer Psych Facility History of present illness: Ms. Alba is a 31 year old female with a past medical history of depression, prior psychiatric hospitalization for suicidal ideation who presented to an outside facility on 05/30/17 status post intentional drug ingestion. Patient reports that she took 30 40 mg tablets of Geodon yesterday evening. She is unsure of the exact time. States that she was having an argument with her who she says "told her to take them". She reports a prior history of suicidal ideation in the past as well as requiring psychiatric admission in an inpatient setting. She denies any coingestions. She was seen at the outside facility where she had a workup and was transferred here for observation given the potential cardiac complications of Geodon ingestion. At the outlying facility she was noted to have a urine drug screen positive for barbiturates and THC. Electrolytes within normal limits. Slightly elevated creatinine which appears to be her baseline. Patient evaluated at bedside in the intensive care unit. She is alert and oriented 3. She voices no new complaints. She currently denies any suicidal or homicidal ideation. She denies any visual or auditory hallucinations. She denies any chest pain shortness of breath nausea vomiting diarrhea or abdominal pain. Past Med Surg Social Fam HX - Past Medical History Attestation: Yes The following information was validated with the patient. Source: patient Medical history: GERD, migraine, other Psychiatric history: depression, prior suicide attempt, previous psychiatric hospitalization - Past Surgical History Surgical History: cholecystectomy, hysterectomy - Social History Smoking Status: Current every day smoker Smokeless Tobacco Status: No Alcohol use: occasionally Drug use: none Internal Medicine - H&P: Meds Estradiol 0.5 mg PO DAILY 11/17/15 [History] Ziprasidone [Geodon] 40 mg PO HS 05/30/17 [History] Acetaminophen/Butalbital/Caffe [Fioricet] 1 each PO Q6HR PRN 05/31/17 [History] Desvenlafaxine Succinate [Pristiq ER] 100 mg PO DAILY 05/31/17 [History] LORazepam [Ativan] 1 mg PO TID 05/31/17 [History] 3 Allergy/AdvReac Type Severity Reaction Status Date / Time Penicillins Allergy Difficulty Verified 05/30/17 22:42 Breathing All Systems PM: A 10-system review of systems was performed and is negative for pertinent findings except as documented above in the HPI. - Constitutional Constitutional: as per HPI - EENT Eyes: as per HPI Ears: as per HPI Nose, mouth and throat: as per HPI - Breasts Breasts: as per HPI - Cardiovascular Cardiovascular ROS IM: as per HPI - Respiratory Respiratory: as per HPI - Gastrointestinal Gastrointestinal: as per HPI - Genitourinary Genitourinary: as per HPI Menstruation: as per HPI - Musculoskeletal Musculoskeletal ROS IM: as per HPI - Integumentary Integumentary IM: as per HPI - Neurological Neurological ROS: as per HPI - Psychiatric Psychiatric: as per HPI - Endocrine Endocrine IM: as per HPI - Hematologic/Lymphatic Hematologic/Lymphatic: as per HPI - Allergic/Immunologic Allergic/Immunologic: as per HPI - Constitutional General appearance: Present: A&O X 3, no acute distress, answers questions appropriately - Head Head exam: Present: atraumatic, normal inspection, normocephalic - Eye Eye exam: Present: normal appearance, PERRL - Neck Neck exam general surgery: Present: full ROM - Respiratory Respiratory exam: Present: CTAB - Cardiovascular Cardiovascular exam: Present: bradycardia, +S1, +S2 - GI/Abdominal GI/Abdominal exam: Present: soft. Absent: distended, guarding, tenderness - Extremities Exam Extremities exam: Present: full ROM, normal inspection - Neurological Exam Neurological exam: Present: alert, oriented X3, no focal deficits - Psychiatric Psychiatric exam: Present: depressed, flat affect - Skin Skin exam: Present: dry, intact Internal Med - H&P Results - EKG Data -: EKG Interpreted by Myself (Sinus bradycardia. Biphasic T waves anterior leads. Corrected QT of 564) EKG shows normal: sinus rhythm <AshleighCiarajosealissa - Last Filed: 05/31/17 06:55> Date of Encounter: 05/31/17 Internal Medicine - H&P: HPI History of present illness: Ms. Alba is a 31 year old female All Systems PM: A 10-system review of systems was performed and is negative for pertinent findings except as documented above in the HPI. - Constitutional Vitals: Pulse Resp BP Pulse Ox 57 16 117/76 96 05/31/17 06:04 05/31/17 06:04 05/31/17 06:04 05/31/17 06:04 - Attending Attestation I examined this patient and my medical decision-making was reviewed with the Resident Physician. I agree with the documented findings, disposition and treatment plan as described except to the extent set forth below.
[2017-05-31] MEDS ORDERED: Naloxone 0.4 MG/ML INJ IVP PRN ×2 (05:00→20:00)
[2017-05-31] MEDS ORDERED: Acetaminophen 325 MG TABLET PO PRN ×2 (05:00→20:00)
[2017-05-31] MEDS ORDERED: Ibuprofen 400 MG TABLET PO PRN ×2 (05:00→20:00)
[2017-05-31] MEDS: 0.9 % Sodium Chloride 1,000 ML IVC SCH ×3 (05:33→23:24)
[2017-05-31 09:33] LABS: Basophils % 0.6 %; Eosinophils # 0.1 K/mcL (0.0-0.6); Hematocrit 34.4 % (35.3-44.9); Hemoglobin 11.4 g/dL (11.5-15.4); Immature Granulocytes % 0.2 % (0-4); Lymphocytes # 1.6 K/mcL (0.6-4.6); Lymphocytes % 31.9 %; Mean Corpuscular HGB Conc 33.1 g/dL (31.6-35.5); Mean Corpuscular Hemoglobin 31.2 pg (28.0-33.3); Mean Corpuscular Volume 94.2 fL (83.0-100.0); Mean Platelet Volume 10.2 fL (9.4-12.4); Monocytes # 0.4 K/mcL (0.0-1.3); Monocytes % 8.4 %; Nucleated Red Blood Cells 0.4 /100 WBC (0); Platelet Count 122 K/mcL (140-400); Red Blood Count 3.65 M/mcL (3.82-4.97); Red Cell Distribution Width 12.1 % (11.5-14.5); Segmented Neutrophils % 57.9 %
--- NOTE | 2017-05-31 09:46 | Event Note ---
Addendum entered and electronically signed by Shira Carrillo DO 05/31/17 11:52: QT prolongation secondary to medications such as geodon -asymptomatic bradycardia -continue tele -accu check q4h -EKG q6h to monitor QTc -call poison control -order echo Original Note: <Shira Carrillo - Last Filed: 05/31/17 09:43> Date of Encounter: 05/31/17 Time of Encounter: 09:30 31yo F PMH depression, anxiety, migraine, prior suicidal ideation and psychiatric hospitalization admitted -as transfer from [facility] due to intentional overdose of 30 tablets of Geodon 40 mg. She denies chest pain, shortness of breath, change in vision, nausea, vomiting, abdominal pain. Gen.: Vitals noted. No acute distress. AAOx3 HEENT: oropharynx clear, Normocephalic, atraumatic Cardiac: RRR, no murmur, +S1/S2 Pulmonary: CTA bilaterally, no wheezes, rales or rhonchi, equal chest expansion Abdomen: soft, nontender, Bowel sounds noted, no guarding MSK: ROM intact, no joint swelling noted Extremities: no BLE edema, nontender calf Neuro: A&Ox3, moves all extremities, no focal deficits Psych: Appropriate mood and behavior A/P: Drug overdose -intentional ingestion of 30 tablets of Geodon 40 mg. She took pills after argument with whom she says told her to take the pills. She stated it was not a suicide attempt. Was given naloxone -Prior history of psychiatric hospitalizations for suicidal ideation. Does not have a psychiatrist but instead her PCP prescribes her medications. -EKG: sinus bradycardia, to wave inversion in leads V2 and V3. QTC 482 -Patient denies chest pain, shortness of breath, change in vision, abdominal pain. -Will hold off on giving home medications. Will await psychiatrist evaluation, recommendations appreciated Depression -history of depression taking Geodon, amitriptyline, Ativan, Pristiq Migraines -history of migraines taking fioricet CKD stage 3 -creatinine 1.27 at baseline -she reported that she has been told in the past that her creatinine is elevated. She has an appointment with auditor tax in July. Drug abuse Barbiturate and marijuana positive in urine <Rubi Goodwin - Last Filed: 05/31/17 17:37> Date of Encounter: 05/31/17 I examined this patient and my medical decision-making was reviewed with the Resident Physician Dr. Carrillo. I agree with the documented findings, disposition and treatment plan as described except to the extent set forth below. Ms. Alba is a 31 year old female with a past medical history of depression, prior psychiatric hospitalization for suicidal ideation who presented to [facility] on 05/30/17 status post intentional drug ingestion. Patient reports that she took 30 40 mg tablets of Geodon yesterday evening. She is alert , awake and O x 3. Denied any suicidal ideation. Denied any CP / SOB Chest: Diminished BS b/; Heart: S1S2+ sinus paulino Abd: Soft NT Pysch: depressed a/p 1. Acute intentional drug overdose with geodon 2. Sinus bradycardia 3. Prolonged Qt interval 4. Suicidal ideation cont close monitoring Q6hr EKG 2D Echo Card consulted Psych consulted IV hydration Suicidal precautions
[2017-05-31 09:55] LABS: BUN/Creatinine Ratio 4 (6-26); Blood Urea Nitrogen 5 mg/dL (6-20); Calcium 8.5 mg/dL (8.6-10.3); Carbon Dioxide 28 mEq/L (23-29); Chloride 112 mEq/L (98-107); Glucose 84 mg/dL (70-105); Magnesium 2.2 mg/dL (1.6-2.6); Osmolality,Calculated 294 (280-300); Potassium 3.9 mEq/L (3.5-5.1); Sodium 144 mEq/L (136-145); eGFR For African Americans > 60 (> 60); eGFR For Non-African Americans 54 (> 60)
--- NOTE | 2017-05-31 14:51 | Consult Note ---
Date of Encounter: 05/31/17 Time of Encounter: 14:03 Assessment & Recommendation (1) Drug overdose Current visit: No Status: Acute Assessment & Recommendation: patient in ICU for treatment , ingested 30 pills of 80 mg geodon. Qualifiers: Encounter type: initial encounter Injury intent: intentional self-harm Qualified Code(s): T50.902A - Poisoning by unspecified drugs, medicaments and biological substances, intentional self-harm, initial encounter (2) Suicidal behavior with attempted self-injury Current visit: No Status: Acute (3) Bipolar disorder, unspecified Current visit: Yes Status: Acute Qualifiers: Active/Remission status: currently active Current bipolar episode type: mixed Current episode severity: severe Psychotic features: without psychotic features Qualified Code(s): F31.63 - Bipolar disorder, current episode mixed, severe, without psychotic features History of Present Illness Patient: new to practice Requesting Physician: Adalgisa Sotelo MD Reason for consult: intentional overdose History of present illness: Ms. Alba is a 31 year old female consulted today at bedside in ICU . SHe has past history of depression, anxiety, migraine, prior suicidal ideation and psychiatric hospitalization she was admitted -as transfer from [place] [facility] due to intentional overdose of 30 tablets of Geodon 40 mg. she was admitted to in 03/28 for suicidal ideation and plan to cut self or OD. she at present is very irritable, loud and wants to go home , she feels she is fine , even though tried to explain need to be in hospital for her safety and treatment, she gave me her name and phone # and consent to call him. As she is not giving me any information except the ass hole told me to go ahead and take the medicine. She is just focused on leaving [facility]. per her whom i called at 1435 PM Mr Juwan Alba who gave info that since december of 2016 she has been admitted 4 times to psychiatric inpatient , 2 times in [place] and others at [place] .As per him they were at their friends house and when coming back she and kids were hungry so got pizza and when came home she was not hungry and refused to eat , and has not been eating right , she responded to him i do not want to live any more anyway and i will take care of the problem i brijesh to her go ahead and she took her pills , he called neighbor to take care of kids and called 911 but they would take while so he bought her to ER . She has impulsive behaviour , she is not taking care of her and at present poor judgement and insight. A/P Bipolar AFFective Disorder . will hold all her psych medications at present once medically stable will admit to psychiatric inpatient . thank you for consult. CC: Adalgisa Sotelo MD Past Med Surg Social Fam HX - Past Medical History Medical history: GERD, migraine, other - Past Psychiatric History Psychiatric history: Reports: bipolar, depression, prior suicide attempt, previous psychiatric hospitalization Family psychiatric history: Unknown Family History of Suicide: Unknown - Past Surgical History Surgical History: cholecystectomy, hysterectomy - Social History Smoking Status: Current every day smoker Smokeless Tobacco Status: No Alcohol use: occasionally Drug use: none Medications & Allergies Estradiol 0.5 mg PO DAILY 11/17/15 [History] Acetaminophen/Butalbital/Caffe [Fioricet] 1 each PO Q6HR PRN 05/31/17 [History] Amitriptyline [Elavil] 50 mg PO HS 05/31/17 [History] Desvenlafaxine Succinate [Pristiq ER] 100 mg PO DAILY 05/31/17 [History] LORazepam [Ativan] 1 mg PO TID 05/31/17 [History] Ziprasidone HCl [Geodon] 80 mg PO DAILY 05/31/17 [History] 3 Allergy/AdvReac Type Severity Reaction Status Date / Time Penicillins Allergy Difficulty Verified 05/30/17 22:42 Breathing Review of Systems Psychiatric: Reports: depression, anxiety, abnormal sleep pattern, suicidal ideation, change in appetite, hopelessness Psychiatry Exam - Constitutional Vitals: Temp Pulse Resp BP Pulse Ox 97.6 F 35 15 109/64 95 05/31/17 11:50 05/31/17 12:00 05/31/17 12:00 05/31/17 12:00 05/31/17 12:00 General appearance: age & developmentally appropriate - Psychiatric Patient Orientation: Yes Person Level of alertness: Alert Behavior: hostile, impulsive Psychomotor activity: Agitated Eye Contact: Minimal Contact Mood Description: Angry, Irritable Affect description: congruent with mood Speech Volume: Loud Attention Span Ability: Unable to Sustain Attention Judgment: Limited Insight: Minimal Results - Labs Labs: Laboratory Last Values WBC 5.1 K/mcL (4.3-11.1) 05/31/17 09:17 RBC 3.65 M/mcL (3.82-4.97) L 05/31/17 09:17 Hgb 11.4 g/dL (11.5-15.4) L 05/31/17 09:17 Hct 34.4 % (35.3-44.9) L 05/31/17 09:17 MCV 94.2 fL (83.0-100.0) 05/31/17 09: MCH 31.2 pg (28.0-33.3) 05/31/17 09: MCHC 33.1 g/dL (31.6-35.5) 05/31/17 09: RDW 12.1 % (11.5-14.5) 05/31/17 09:17 Plt Count 122 K/mcL (140-400) L 05/31/17 09:17 MPV 10.2 fL (9.4-12.4) 05/31/17 09:17 Immature Gran % 0.2 % (0-4) 05/31/17 09:17 Seg Neutrophils % 57.9 % 05/31/17 09:17 Lymphocytes % 31.9 % 05/31/17 09:17 Monocytes % 8.4 % 05/31/17 09:17 Eosinophils % 1.0 % 05/31/17 09: Basophils % 0.6 % 05/31/17 09:17 Neutrophils # 3.0 K/mcL (1.6-8.9) 05/31/17 09:17 Lymphocytes # 1.6 K/mcL (0.6-4.6) 05/31/17 09:17 Monocytes # 0.4 K/mcL (0.0-1.3) 05/31/17 09:17 Eosinophils # 0.1 K/mcL (0.0-0.6) 05/31/17 09:17 Basophils # 0.0 K/mcL (0.0-0.2) 05/31/17 09:17 Nucleated RBCs/100 WBC 0.4 /100 WBC (0) H 05/31/17 09:17 Sodium 144 mEq/L (136-145) 05/31/17 09:17 Potassium 3.9 mEq/L (3.5-5.1) 05/31/17 09:17 Chloride 112 mEq/L (98-107) H 05/31/17 09:17 Carbon Dioxide 28 mEq/L (23-29) 05/31/17 09:17 BUN 5 mg/dL (6-20) L 05/31/17 09:17 Creatinine 1.17 mg/dL (0.60-1.20) 05/31/17 09:17 Est GFR ( Amer) > 60 (> 60) 05/31/17 09:17 Est GFR (Non-Af Amer) 54 (> 60) L 05/31/17 09:17 BUN/Creatinine Ratio 4 (6-26) L 05/31/17 09:17 Glucose 84 mg/dL (70-105) 05/31/17 09:17 Calculated Osmolality 294 (280-300) 05/31/17 09:17 Calcium 8.5 mg/dL (8.6-10.3) L 05/31/17 09:17 Magnesium 2.2 mg/dL (1.6-2.6) 05/31/17 09:17 Consult Discharge Plan - Plan Referrals: NONE,PCP [Primary Care Provider] -
--- NOTE | 2017-05-31 17:07 | Electrocardiograph Report ---
[address] [place] [address] Test Date: 2017-05-31 Pat Name: Janell Alba Department: 109 Room: [facility] Gender: F [employer] Installer: LEILA : 1985 Requested By: Bebo Garcia Order Number: [id number] Reading MD: Kathy Irizarry Measurements Intervals Independence Rate: 37 P: 73 AR: 146 QRS: -13 QRSD: 118 T: -4 QT: 646 QTc: 562 Interpretive Statements SINUS BRADYCARDIA ANTEROSEPTAL MYOCARDIAL INFARCTION, POSSIBLY RECENT Electronically Signed On 05-31-2017 17:05:53 EDT by Kathy Irizarry
[2017-06-01 04:49] LABS: Basophils % 0.5 %; Eosinophils % 0.5 %; Hematocrit 32.5 % (35.3-44.9); Hemoglobin 10.9 g/dL (11.5-15.4); Immature Granulocytes % 0.2 % (0-4); Lymphocytes # 1.8 K/mcL (0.6-4.6); Lymphocytes % 30.5 %; Mean Corpuscular HGB Conc 33.5 g/dL (31.6-35.5); Mean Corpuscular Hemoglobin 31.1 pg (28.0-33.3); Mean Corpuscular Volume 92.9 fL (83.0-100.0); Mean Platelet Volume 10.8 fL (9.4-12.4); Monocytes # 0.4 K/mcL (0.0-1.3); Monocytes % 7.3 %; Neutrophils # 3.5 K/mcL (1.6-8.9); Platelet Count 139 K/mcL (140-400); Red Cell Distribution Width 12.3 % (11.5-14.5)
[2017-06-01 05:01] LABS: BUN/Creatinine Ratio 6 (6-26); Blood Urea Nitrogen 7 mg/dL (6-20); Carbon Dioxide 24 mEq/L (23-29); Chloride 114 mEq/L (98-107); Glucose 85 mg/dL (70-105); Magnesium 2.4 mg/dL (1.6-2.6); Osmolality,Calculated 293 (280-300); Potassium 3.9 mEq/L (3.5-5.1); Sodium 143 mEq/L (136-145); eGFR For African Americans > 60 (> 60); eGFR For Non-African Americans 52 (> 60)
[2017-06-01] MEDS: 0.9 % Sodium Chloride 1,000 ML IVC SCH (07:40)
[2017-06-01] MEDS: Ringers Solution, Lactated 1,000 ML IVC SCH ×2 (11:18→22:05)
[2017-06-01] MEDS ORDERED: *HR* Atropine Sulfate 1 MG/10 ML SYRINGE ONE (12:01)
[2017-06-01] MEDS ORDERED: *HR* Atropine Sulfate 1 MG/10 ML SYRINGE IVP ONE (12:03)
--- NOTE | 2017-06-01 13:18 | Cardiology Consult Note ---
<Jp Lincoln R - Last Filed: 06/01/17 13:14> Date of Encounter: 06/01/17 Time of Encounter: 13:14 Assessment and Plan (1) Prolonged QT interval Current Visit: Yes Status: Acute Prolonged QT in setting of Geodon overdose, which is a QT prolonging drug. Longest QT/QTc noted 05/31/17 at 1038 was 646/562ms. Now improved, QT/QTc this AM 547/447ms. Mag and K stable, check TSH. TTE resulted--EF preserved. Pt denies syncope, dizziness, lightheadedness or any family hx of sudden cardiac . Continue to monitor EKGs [id number]. Re-evaluate tomorrow AM. (2) Bradycardia Current Visit: Yes Status: Acute HR 30s at bedside. 12 hr tele AVG HR 43, lowest HR 29. Longest pause 2.3 seconds. No high degree AV block noted. All appears to be sinus bradycardia with sinus pauses. EKG reviewed from 03/2017 and HR was 44bpm at that time. Denies dizziness, lightheadedness or syncope. K and Mag within normal range. Check TSH. Discussed with Dr. Patel, recommends standard exercise stress test in AM to evaluate for chronotropic incompetence. Continue to follow. Discussion w patient/family: The assessment and plan as outlined above was discussed with the patient and/or family members who expressed understanding and agreement. All questions were answered. Thank you for involving us in the care of your patient. Please call with any questions. I will discuss all the above with Dr. Patel and make changes as necessary. History of Present Illness Consult date: 06/01/17 Consult reason: bradycardia, prolonged QT Chief complaint: overdose History of present illness: Ms. Alba is a 31 year old female with a past medical history of depression, prior psychiatric hospitalization for suicidal ideation who presented to an outside facility on 05/30/17 status post intentional drug ingestion. Patient reportedly took thirty 40 mg tablets of Geodon. She is unsure of the exact time. States that she was having an argument with her who she says "told her to take them". She reports a prior history of suicidal ideation in the past as well as requiring psychiatric admission in an inpatient setting. She denies any coingestions. She was seen at the outside facility where she had a workup and was transferred here for observation given the potential cardiac complications of Geodon ingestion. At the outlying facility she was noted to have a urine drug screen positive for barbiturates and THC. Cardiology consulted for bradycardia and QT prolongation. Pt denies dizziness, lightheadedness or syncope. Denies family hx of sudden cardiac . Per pt, has been known to have bradycardia for years. Currently HR is 30s at bedside. TTE resulted--EF 60%, sinus paulino HR 30s-40s, no significant findings. Past Med Surg Social Fam HX - Past Medical History Medical history: GERD, migraine, other Psychiatric history: bipolar, depression, prior suicide attempt, previous psychiatric hospitalization - Past Surgical History Surgical History: cholecystectomy, hysterectomy - Social History Smoking Status: Current every day smoker Smokeless Tobacco Status: No Alcohol use: occasionally Drug use: none Medications and Allergies Estradiol 0.5 mg PO DAILY 11/17/15 [History] Acetaminophen/Butalbital/Caffe [Fioricet] 1 each PO Q6HR PRN 05/31/17 [History] Amitriptyline [Elavil] 50 mg PO HS 05/31/17 [History] Desvenlafaxine Succinate [Pristiq ER] 100 mg PO DAILY 05/31/17 [History] LORazepam [Ativan] 1 mg PO TID 05/31/17 [History] Ziprasidone HCl [Geodon] 80 mg PO DAILY 05/31/17 [History] 3 Allergy/AdvReac Type Severity Reaction Status Date / Time Penicillins Allergy Difficulty Verified 05/30/17 22:42 Breathing All Systems Review: The remainder of the systems were reviewed and are negative - Cardiovascular Cardiovascular: as per HPI Physical Examination Vital Signs, Last 4 Hours Pulse Resp BP Pulse Ox 06/01/17 12:00 98 16 164/118 98 Vital Signs Temp Pulse Resp BP Pulse Ox 06/01/17 12:00 98 16 164/118 98 06/01/17 08:00 47 16 134/83 98 06/01/17 06:59 98.5 F 06/01/17 04:00 98.2 F 51 20 122/79 98 06/01/17 01:00 45 16 05/31/17 23:29 98.1 F 47 18 107/61 96 05/31/17 22:00 44 14 05/31/17 20:00 42 18 130/78 100 05/31/17 18:00 36 20 98 04/23/18 16:01 98.5 F 37 16 125/75 97 05/31/17 16:00 98.5 F 35 20 125/75 98 Intake and Output 05/31/17 06/01/17 06/01/17 23:59 07:59 15:59 Intake Total 1050 / 1050 1000 / 1000 450 / 450 Output Total 0 / 0 0 / 0 Balance 1050 / 1050 1000 / 1000 450 / 450 Intake: IV Fluids 1050 / 1050 1000 / 1000 400 / 400 0.9 % Sodium Chloride 1,000 ML 1000 / 1000 1000 / 1000 400 / 400 @ 125 mls/hr IVC .Q8H [facility] Rx#: [id number] Oral 0 / 0 0 / 0 50 / 50 Output: Urine 0 / 0 0 / 0 Other: Meal Breakfast Percent of Meal Consumed 5% Stool Size Moderate Stool Consistency soft formed Stool Color Brown # Voids 1 # Bowel Movements 1 Weight 71 kg Blood Glucose* 108 Patient Weight 06/01/17 23:59 Weight 71 kg General: Conversant, No Apparent Distress HEENT: Atraumatic, Normocephaly, Mucus Membranes Moist Neck: No JVD, Normal carotid pulses Cardiac: Reg Rate and Rhythm, Normal S1 and S2, No Murmur Lungs: Normal Breath Sounds, No Wheeze, Rales, Rhonchi Neuro: Alert and responsive, No focal deficits noted Abdomen: Soft, Non-Tender Skin: No rashes noted on visualized skin Musculoskeletal: No Chest Wall Tenderness Extremities: No Clubbing, No Cyanosis, No Edema, Normal Pulses Results 06/01/17 03:56 06/01/17 03:56 Lab Results 06/01/17 06/01/17 03:56 03:56 WBC 5.7 Hgb 10.9 L Hct 32.5 L Plt Count 139 L Sodium 143 Potassium 3.9 Chloride 114 H Carbon Dioxide 24 BUN 7 Creatinine 1.20 Glucose 85 Calcium 8.0 L Magnesium 2.4 Short CBC 06/01/17 Range/Units 03:56 WBC 5.7 (4.3-11.1) K/mcL Hgb 10.9 L (11.5-15.4) g/dL Hct 32.5 L (35.3-44.9) % Plt Count 139 L (140-400) K/mcL Neutrophils # 3.5 (1.6-8.9) K/mcL BMP 06/01/17 Range/Units 03:56 Sodium 143 (136-145) mEq/L Potassium 3.9 (3.5-5.1) mEq/L Chloride 114 H (98-107) mEq/L Carbon Dioxide 24 (23-29) mEq/L BUN 7 (6-20) mg/dL Creatinine 1.20 (0.60-1.20) mg/dL Glucose 85 (70-105) mg/dL Calcium 8.0 L (8.6-10.3) mg/dL Impressions Echocardiogram 05/31/17 11:50 Impressions: Sinus bradycardia, HR 30s-40s. LVEF 60%. Normal LV chamber size, wall thickness and function. Normal left ventricular diastolic function. Normal right ventricular structure and function. No evidence of pulmonary hypertension. No significant valvular dysfunction. Left Ventricular Wall Motion: Rest Echo Findings All wall segments showed normal motion. Findings: Study Quality * Technically adequate exam. ECG Findings * Sinus bradycardia. Left Ventricle * LVEF 60%. * Normal LV chamber size, wall thickness and function. * Normal left ventricular diastolic function. Right Ventricle * Normal right ventricular structure and function. Left Atrium * Normal left atrial size. Right Atrium * Normal right atrial size. Interatrial Septum * Interatrial septum not well evaluated. Aortic Valve * Aortic valve not well visualized. * No aortic regurgitation. * No aortic stenosis. Mitral Valve * Normal mitral valve structure and function. * No mitral stenosis. * Trace mitral regurgitation. Tricuspid Valve * Normal tricuspid valve structure and function. * Trace tricuspid regurgitation. * No evidence of pulmonary hypertension. Pulmonic Valve * Normal pulmonic valve structure and function. * No pulmonic regurgitation. Aorta * Normally sized aortic root. Pericardium * The pericardium appears normal. IVC * Normal IVC dimensions and inspiratory collapse. Pulmonary Artery * Normal visualized portions of the main pulmonary artery. Active Medications Acetaminophen (Tylenol) 650 mg PO Q6HR PRN PRN Reason: Mild Pain/Fever Stop: 11/30/17 05:01 Lactated Ringer's (Lactated Ringers) 1,000 mls @ 100 mls/hr IVC .Q10H [facility] Stop: 12/01/17 11:01 Last Admin: 06/01/17 11:18 Dose: 100 mls/hr Ibuprofen (Motrin) 400 mg PO Q6HR PRN PRN Reason: Mild Pain/Fever Stop: 11/30/17 05:01 Naloxone HCl (Narcan) 0.4 mg IVP Q2MIN PRN PRN Reason: SEE COMMENTS Stop: 11/30/17 05:01 - Imaging and Cardiology Echo: report reviewed - EKG Interpretation EKG results cardiology: personally reviewed, other (12 hr tele AVG HR 43, lowest HR 29, longest pause 2.3 seconds) Consult Discharge Plan - Plan Referrals: Shmuel Kwan, [employer] [Non-Partnered Physician] - 06/10/17 11:00 am (please fax a discharge summary to [phone] ) <Ted Patel - Last Filed: 06/03/17 08:56> Date of Encounter: 06/01/17 Time of Encounter: 17:00 - Attending Attestation I have personally performed a face to face evaluation on this patient. I have reviewed and agree with the care plan. History and Exam by me shows: CC: bradycardia, prolonged QT Pt reports took over 30 Geodon in a suicide attempt, presented to ER with mild bradycardia and mild QT prolongation. She denies chest pain, pressure, dizziness, lightheadedness, or previous cardiac history. PMHx: Reviewed PE; pt seen and examined, agree with findings as documented. IMP/Plan: 1. Bradycardia, QT prolongation: has baseline bradycardia, however is completely asymptomatic, will order treadmill stress to evaluate chronotropic competence, 2, QT prolongation secondary to Geodon ingestion, will continue to monitor, greatest period at risk for significant cardiac arrhythmia is past, will monitor closely. Agree with aggressive hydration, sequential EKGs 3. Suicidal ideation: continue to monitor, psych eval pending. Assessment and Plan Discussion w patient/family: The assessment and plan as outlined above was discussed with the patient and/or family members who expressed understanding and agreement. All questions were answered. Thank you for involving us in the care of your patient. Please call with any questions. History of Present Illness History of present illness: Ms. Alba is a 31 year old female All Systems Review: The remainder of the systems were reviewed and are negative Physical Examination Vital Signs, Last 4 Hours Temp Pulse Resp BP Pulse Ox 06/03/17 07:53 40 06/03/17 07:41 98.4 F 45 18 120/84 95 Results 06/03/17 04:41 06/03/17 04:41 Lab Results 06/03/17 06/03/17 04:41 04:41 WBC 8.0 Hgb 11.0 L Hct 32.0 L Plt Count 144 Sodium 141 Potassium 3.4 L Chloride 107 Carbon Dioxide 28 BUN 5 L Creatinine 1.11 Glucose 94 Calcium 8.7
--- NOTE | 2017-06-01 13:54 | Consult Note ---
Date of Encounter: 06/01/17 Time of Encounter: 12:30 Assessment & Recommendation (1) Drug overdose Current visit: No Status: Inactive Qualifiers: Encounter type: initial encounter Injury intent: intentional self-harm Qualified Code(s): T50.902A - Poisoning by unspecified drugs, medicaments and biological substances, intentional self-harm, initial encounter (2) Suicidal behavior with attempted self-injury Current visit: No Status: Acute (3) Bipolar disorder, unspecified Current visit: Yes Status: Acute Qualifiers: Active/Remission status: currently active Current bipolar episode type: mixed Current episode severity: severe Psychotic features: without psychotic features Qualified Code(s): F31.63 - Bipolar disorder, current episode mixed, severe, without psychotic features History of Present Illness Patient: known to practice within the last 3 years Requesting Physician: Dameon Pantoja Reason for consult: overdose History of present illness: Ms. Alba is a 31 year old female was seen today at her bedside for follow up. Today she is calm and able to answer some questions, states she does not want hurt herself but agrees has anger and depression and impulsive. she denies any psychosis. she is high risk as has had 4 psych inpatient since 12/25 and is very impulsive. will continue follow up , once stable will evaluate for psychiatric inpatient . Thanks for involving us in patient care. CC: Dameon Pantoja Past Med Surg Social Fam HX - Past Medical History Medical history: GERD, migraine, other - Past Psychiatric History Psychiatric history: Reports: depression, prior suicide attempt, previous psychiatric hospitalization Family psychiatric history: Unknown Family History of Suicide: Unknown - Past Surgical History Surgical History: cholecystectomy, hysterectomy - Social History Smoking Status: Current every day smoker Smokeless Tobacco Status: No Alcohol use: occasionally Drug use: none Medications & Allergies Estradiol 0.5 mg PO DAILY 11/17/15 [History] Acetaminophen/Butalbital/Caffe [Fioricet] 1 each PO Q6HR PRN 05/31/17 [History] Amitriptyline [Elavil] 50 mg PO HS 05/31/17 [History] Desvenlafaxine Succinate [Pristiq ER] 100 mg PO DAILY 05/31/17 [History] LORazepam [Ativan] 1 mg PO TID 05/31/17 [History] Ziprasidone HCl [Geodon] 80 mg PO DAILY 04/23/18 [History] 3 Allergy/AdvReac Type Severity Reaction Status Date / Time Penicillins Allergy Difficulty Verified 05/30/17 22:42 Breathing Review of Systems Psychiatric: Reports: depression, anxiety, abnormal sleep pattern, suicidal ideation, change in appetite, hopelessness Psychiatry Exam - Constitutional Vitals: Temp Pulse Resp BP Pulse Ox 98.5 F 98 16 164/118 98 06/01/17 06:59 06/01/17 12:00 06/01/17 12:00 06/01/17 12:00 06/01/17 12:00 General appearance: age & developmentally appropriate - Musculoskeletal Station: other (patient is alert and oriented, ) Strength & Tone: normal for patient - Psychiatric Patient Orientation: Yes Person, Yes Time, Yes Place Level of alertness: Alert Behavior: calm Psychomotor activity: Normal Eye Contact: Maintains Eye Contact Mood Description: Anxious, Irritable Affect description: constricted Speech Volume: Normal Speech pattern: normal rate, normal rhythm, normal tone, fluent, spontaneous Thought Process: Logical Thought Content: No Suicidal ideation, No Homicidal ideation, No Overt delusions Perceptual Disturbances: No Auditory hallucinations, No Visual hallucinations Attention Span Ability: Unable to Sustain Attention Memory Description: Grossly Intact Patient Reliability: Questionable Historian Intelligence Estimate: Average Judgment: Limited Insight: Minimal Results - Labs Labs: Laboratory Last Values WBC 5.7 K/mcL (4.3-11.1) 06/01/17 03:56 RBC 3.50 M/mcL (3.82-4.97) L 06/01/17 03:56 Hgb 10.9 g/dL (11.5-15.4) L 06/01/17 03:56 Hct 32.5 % (35.3-44.9) L 06/01/17 03:56 MCV 92.9 fL (83.0-100.0) 06/01/17 03:56 MCH 31.1 pg (28.0-33.3) 06/01/17 03:56 MCHC 33.5 g/dL (31.6-35.5) 06/01/17 03:56 RDW 12.3 % (11.5-14.5) 06/01/17 03:56 Plt Count 139 K/mcL (140-400) L 06/01/17 03:56 MPV 10.8 fL (9.4-12.4) 06/01/17 03:56 Immature Gran % 0.2 % (0-4) 06/01/17 03:56 Seg Neutrophils % 61.0 % 06/01/17 03:56 Lymphocytes % 30.5 % 06/01/17 03:56 Monocytes % 7.3 % 06/01/17 03:56 Eosinophils % 0.5 % 06/01/17 03:56 Basophils % 0.5 % 06/01/17 03:56 Neutrophils # 3.5 K/mcL (1.6-8.9) 06/01/17 03:56 Lymphocytes # 1.8 K/mcL (0.6-4.6) 06/01/17 03:56 Monocytes # 0.4 K/mcL (0.0-1.3) 06/01/17 03:56 Eosinophils # 0.0 K/mcL (0.0-0.6) 06/01/17 03:56 Basophils # 0.0 K/mcL (0.0-0.2) 06/01/17 03:56 Nucleated RBCs/100 WBC 0.4 /100 WBC (0) H 05/31/17 09:17 Sodium 143 mEq/L (136-145) 06/01/17 03:56 Potassium 3.9 mEq/L (3.5-5.1) 06/01/17 03:56 Chloride 114 mEq/L (98-107) H 06/01/17 03:56 Carbon Dioxide 24 mEq/L (23-29) 06/01/17 03:56 BUN 7 mg/dL (6-20) 06/01/17 03:56 Creatinine 1.20 mg/dL (0.60-1.20) 06/01/17 03:56 Est GFR ( Amer) > 60 (> 60) 06/01/17 03:56 Est GFR (Non-Af Amer) 52 (> 60) L 06/01/17 03:56 BUN/Creatinine Ratio 6 (6-26) 06/01/17 03:56 Glucose 85 mg/dL (70-105) 06/01/17 03:56 POC Glucose 108 mg/dL (70-99) H 05/31/17 18:54 Calculated Osmolality 293 (280-300) 06/01/17 03:56 Calcium 8.0 mg/dL (8.6-10.3) L 06/01/17 03:56 Magnesium 2.4 mg/dL (1.6-2.6) 06/01/17 03:56 Urine Test Negative (Negative) 05/31/17 18:40 - Impressions Impressions Echocardiogram 05/31/17 11:50 Impressions: Sinus bradycardia, HR 30s-40s. LVEF 60%. Normal LV chamber size, wall thickness and function. Normal left ventricular diastolic function. Normal right ventricular structure and function. No evidence of pulmonary hypertension. No significant valvular dysfunction. Left Ventricular Wall Motion: Rest Echo Findings All wall segments showed normal motion. Findings: Study Quality * Technically adequate exam. ECG Findings * Sinus bradycardia. Left Ventricle * LVEF 60%. * Normal LV chamber size, wall thickness and function. * Normal left ventricular diastolic function. Right Ventricle * Normal right ventricular structure and function. Left Atrium * Normal left atrial size. Right Atrium * Normal right atrial size. Interatrial Septum * Interatrial septum not well evaluated. Aortic Valve * Aortic valve not well visualized. * No aortic regurgitation. * No aortic stenosis. Mitral Valve * Normal mitral valve structure and function. * No mitral stenosis. * Trace mitral regurgitation. Tricuspid Valve * Normal tricuspid valve structure and function. * Trace tricuspid regurgitation. * No evidence of pulmonary hypertension. Pulmonic Valve * Normal pulmonic valve structure and function. * No pulmonic regurgitation. Aorta * Normally sized aortic root. Pericardium * The pericardium appears normal. IVC * Normal IVC dimensions and inspiratory collapse. Pulmonary Artery * Normal visualized portions of the main pulmonary artery. Consult Discharge Plan - Plan Referrals: NONE,PCP [Primary Care Provider] -
--- NOTE | 2017-06-01 16:21 | Internal Med Progress Note ---
Date of Encounter: 06/01/17 Time of Encounter: 11:00 - Assessment and plan (1) Prolonged QT interval Current Visit: Yes Status: Acute Assessment and plan: Secondary to Geodon overdose; QT interval improving Cardiology following and appreciate recommendations (2) Bradycardia Current Visit: Yes Status: Acute Assessment and plan: Patient with heart rate in the 30s this morning and atropine had to be given Cardiology following with recommendations for stress tests on 06/02/17 to evaluate for chronotropic incompetence (3) Suicidal behavior with attempted self-injury Current Visit: No Status: Acute Assessment and plan: Patient with multiple inpatient psychiatric treatments Recommendations for potential inpatient psychiatric treatment due to patient being a high risk per psychiatry (4) DVT prophylaxis Current Visit: Yes Status: Acute Assessment and plan: SCDs - Time Spent With Patient Total time spent is greater than 50% in coordination of care (as documented) at patient's floor/unit and/or counseling patient: - Subjective Interval history: Patient with bradycardia this morning and atropine IV had to be given but mprovement in QT interval Above secondary to overdose and psychiatry with recommendations for potential inpatient treatment - Constitutional Vitals: Temp Pulse Resp BP Pulse Ox 97.9 F 49 16 149/98 98 06/01/17 15:49 06/01/17 16:05 06/01/17 16:05 06/01/17 16:05 06/01/17 16:05 General appearance: Present: A&O X 3, no acute distress, answers questions appropriately - Respiratory Respiratory exam: Present: CTAB. Absent: accessory muscle use, rales, rhonchi, wheezes - Cardiovascular Cardiovascular exam: Present: bradycardia, RRR, +S1, +S2. Absent: diastolic murmur, gallop, rubs, systolic murmur Internal Medicine: Result - Labs CBC & Chem 7: 06/01/17 03:56 06/01/17 03:56 Labs: Short CBC 06/01/17 Range/Units 03:56 WBC 5.7 (4.3-11.1) K/mcL Hgb 10.9 L (11.5-15.4) g/dL Hct 32.5 L (35.3-44.9) % Plt Count 139 L (140-400) K/mcL Neutrophils # 3.5 (1.6-8.9) K/mcL BMP 06/01/17 03:56 Sodium 143 Potassium 3.9 Chloride 114 H Carbon Dioxide 24 BUN 7 Creatinine 1.20 Glucose 85 Calcium 8.0 L - Impressions Impressions Echocardiogram 05/31/17 11:50 Impressions: Sinus bradycardia, HR 30s-40s. LVEF 60%. Normal LV chamber size, wall thickness and function. Normal left ventricular diastolic function. Normal right ventricular structure and function. No evidence of pulmonary hypertension. No significant valvular dysfunction. Left Ventricular Wall Motion: Rest Echo Findings All wall segments showed normal motion. Findings: Study Quality * Technically adequate exam. ECG Findings * Sinus bradycardia. Left Ventricle * LVEF 60%. * Normal LV chamber size, wall thickness and function. * Normal left ventricular diastolic function. Right Ventricle * Normal right ventricular structure and function. Left Atrium * Normal left atrial size. Right Atrium * Normal right atrial size. Interatrial Septum * Interatrial septum not well evaluated. Aortic Valve * Aortic valve not well visualized. * No aortic regurgitation. * No aortic stenosis. Mitral Valve * Normal mitral valve structure and function. * No mitral stenosis. * Trace mitral regurgitation. Tricuspid Valve * Normal tricuspid valve structure and function. * Trace tricuspid regurgitation. * No evidence of pulmonary hypertension. Pulmonic Valve * Normal pulmonic valve structure and function. * No pulmonic regurgitation. Aorta * Normally sized aortic root. Pericardium * The pericardium appears normal. IVC * Normal IVC dimensions and inspiratory collapse. Pulmonary Artery * Normal visualized portions of the main pulmonary artery. - VTE Documentation of Mechanical Device: Intermittent pneumatic compression device Consult Discharge Plan - Plan Referrals: NONE,PCP [Primary Care Provider] -
[2017-06-01] MEDS ORDERED: Ondansetron ODT 4 MG TAB.RAPDIS SL PRN (16:29)
[2017-06-01] MEDS ORDERED: *HR* Atropine Sulfate 1 MG/10 ML SYRINGE IVP STA (17:32)
[2017-06-02] MEDS: Ringers Solution, Lactated 1,000 ML IVC SCH (08:20)
--- NOTE | 2017-06-02 09:33 | Internal Med Progress Note ---
Date of Encounter: 06/02/17 Time of Encounter: 09:30 - Assessment and plan (1) Suicidal behavior with attempted self-injury Current Visit: No Status: Acute Assessment and plan: Patient with multiple inpatient psychiatric treatments Recommendations for potential inpatient psychiatric treatment due to patient being a high risk per psychiatry. Psychiatry following (2) Prolonged QT interval Current Visit: Yes Status: Acute Assessment and plan: Secondary to Geodon overdose; QT interval improving Cardiology following and appreciate recommendations. Patient medically clear to proceed to inpatient psych once clear from cardiology (3) Bradycardia Current Visit: Yes Status: Acute Assessment and plan: Patient with heart rate in the 30s this morning and atropine had to be given Cardiology following with recommendations for stress tests on 06/02/17 to evaluate for chronotropic incompetence (4) DVT prophylaxis Current Visit: Yes Status: Acute Assessment and plan: SCDs - Time Spent With Patient Total time spent is greater than 50% in coordination of care (as documented) at patient's floor/unit and/or counseling patient: - Subjective Interval history: No acute events overnight - Constitutional Vitals: Temp Pulse Resp BP Pulse Ox 98.6 F 46 14 108/60 97 06/02/17 08:26 06/02/17 08:26 06/02/17 08:26 06/02/17 08:26 06/02/17 08:26 General appearance: Present: A&O X 3, no acute distress, answers questions appropriately - Head Head exam: Present: atraumatic, normocephalic - Respiratory Respiratory exam: Present: CTAB. Absent: accessory muscle use, rales, rhonchi, wheezes - Cardiovascular Cardiovascular exam: Present: RRR, +S1, +S2. Absent: diastolic murmur, gallop, rubs, systolic murmur - GI/Abdominal GI/Abdominal exam: Present: normal bowel sounds, soft, no peritoneal signs. Absent: distended, tenderness - Extremities Exam Extremities exam: Present: warm, radial pulses palpable and symmetrical. Absent : calf tenderness, cyanotic, pedal edema - Neurological Exam Neurological exam: Present: CN II-XII intact, oriented X3, no focal deficits. Absent: pronater drift, facial droop, speech deficit Internal Medicine: Result - Labs CBC & Chem 7: 06/01/17 03:56 06/01/17 03:56 - VTE Documentation of Mechanical Device: Intermittent pneumatic compression device Consult Discharge Plan - Plan Referrals: NONE,PCP [Primary Care Provider] -
--- NOTE | 2017-06-02 10:18 | Cardiology Progress Note ---
Date of Encounter: 06/02/17 Time of Encounter: 10:13 Assessment and Plan (1) Prolonged QT interval Current Visit: Yes Status: Acute Prolonged QT in setting of Geodon overdose, which is a QT prolonging drug. Longest QT/QTc noted 05/31/17 at 1038 was 646/562ms. Continues to improve, QT/QTc this AM 533/437ms. Would continue to avoid QT prolonging drugs at this time. Mag, TSH, and K stable. TTE resulted--EF preserved. Pt denies syncope, dizziness, lightheadedness or any family hx of sudden cardiac . Cardiology signing off. Reconsult PRN. (2) Bradycardia Current Visit: Yes Status: Acute HR 30s-40s at bedside. 12 hr tele AVG HR 45, lowest HR 35. Longest pause 2.3 seconds. No high degree AV block noted. All appears to be sinus bradycardia with sinus pauses. EKG reviewed from 03/2017 and HR was 44bpm at that time. Denies dizziness, lightheadedness or syncope. K, TSH, and Mag within normal range. Underwent standard exercise stress test in AM to evaluate for chronotropic incompetence. Did not achieve her target HR, but HR increased to 129bpm, which is an appropriate response. No further testing or cardiac intervention is warranted. Discussion w patient/family: The assessment and plan as outlined above was discussed with the patient and/or family members who expressed understanding and agreement. All questions were answered. Thank you for involving us in the care of your patient. Please call with any questions. I will discuss all the above with Dr. Patel and make changes as necessary. Subjective Principal diagnosis: Bradycardia, prolonged QT Interval history: Underwent standard stress test this morning to evaluate for chronotropic incompetence. Did not reach goal HR, but HR increased to 129, which is appropriate. TTE EF 60%, no significant findings. Pt denies dizziness or lightheadedness. EKGs reviewed--QT/QTc continues to improve--QT/QTc at 0300 533/ 437ms. 12 hr tele AVG HR 45. Longest pause 2 seconds, lowest HR 35bpm. Objective Vital Signs, Last 4 Hours Temp Pulse Resp BP Pulse Ox 06/02/17 08:26 98.6 F 46 14 108/60 97 Vital Signs Temp Pulse Resp BP Pulse Ox 06/02/17 08:26 98.6 F 46 14 108/60 97 06/02/17 04:04 97.9 F 61 14 112/69 99 06/02/17 02:57 98.5 F 40 12 109/63 99 06/01/17 23:01 98.4 F 50 12 123/88 99 06/01/17 21:24 51 18 134/87 97 06/01/17 20:25 97.9 F 62 20 137/90 95 06/01/17 17:42 96 16 127/83 06/01/17 17:25 43 16 06/01/17 16:07 51 06/01/17 16:05 49 16 149/98 98 06/01/17 15:49 97.9 F 06/01/17 14:00 55 16 146/95 98 06/01/17 12:00 98 16 164/118 98 Intake and Output 06/01/17 06/02/17 06/02/17 23:59 07:59 15:59 Intake Total 1100 / 1100 1000 / 1000 Balance 1100 / 1100 1000 / 1000 Intake: IV Fluids 1000 / 1000 1000 / 1000 Lactated Ringers 1,000 ML @ 100 1000 / 1000 1000 / 1000 mls/hr IVC .Q10H TYLER Rx#: [id number] Oral 100 / 100 Other: Meal Dinner Percent of Meal Consumed 0% # Voids 1 1 1 # Bowel Movements 1 1 Weight 70.7 kg Blood Glucose* 112 Patient Weight 06/02/17 23:59 Weight 70.7 kg General: Conversant, No Apparent Distress HEENT: Atraumatic, Normocephaly, Mucus Membranes Moist Neck: No JVD, Normal carotid pulses Cardiac: Reg Rate and Rhythm, Normal S1 and S2, No Murmur Lungs: Normal Breath Sounds, No Wheeze, Rales, Rhonchi Neuro: Alert and responsive, No focal deficits noted Abdomen: Soft, Non-Tender Skin: No rashes noted on visualized skin Musculoskeletal: No Chest Wall Tenderness Extremities: No Clubbing, No Cyanosis, No Edema, Normal Pulses Results 06/01/17 03:56 06/01/17 03:56 Lab Results 06/02/17 04:45 TSH 2.333 Active Medications Acetaminophen (Tylenol) 650 mg PO Q6HR PRN PRN Reason: Mild Pain/Fever Stop: 11/30/17 05:01 Lactated Ringer's (Lactated Ringers) 1,000 mls @ 100 mls/hr IVC .Q10H TYLER Stop: 12/01/17 11:01 Last Admin: 06/02/17 08:20 Dose: 100 mls/hr Ibuprofen (Motrin) 400 mg PO Q6HR PRN PRN Reason: Mild Pain/Fever Stop: 11/30/17 05:01 Naloxone HCl (Narcan) 0.4 mg IVP Q2MIN PRN PRN Reason: SEE COMMENTS Stop: 11/30/17 05:01 Ondansetron HCl (Zofran Odt) 4 mg SL Q8HR PRN PRN Reason: Nausea And Vomiting Stop: 12/01/17 16:30 Last Admin: 06/01/17 16:51 Dose: 4 mg - Imaging and Cardiology Stress Test: report reviewed Echo: report reviewed - EKG Interpretation EKG results cardiology: personally reviewed, other (12 hr tele AVG HR 45, SR) - VTE Documentation of Mechanical Device: Intermittent pneumatic compression device Consult Discharge Plan - Plan Referrals: NONE,PCP [Primary Care Provider] -
[2017-06-02] MEDS ORDERED: *HR* LORazepam 2 MG/ML VIAL ONE (20:21)
[2017-06-02] MEDS: *HR* LORazepam 2 MG/ML VIAL IVP PRN (20:50)
[2017-06-02] MEDS ORDERED: *HR* Atropine Sulfate 1 MG/10 ML SYRINGE ONE (21:15)
[2017-06-03 04:57] LABS: Basophils % 0.3 %; Eosinophils % 0.4 %; Immature Granulocytes % 0.4 % (0-4); Lymphocytes # 1.9 K/mcL (0.6-4.6); Lymphocytes % 23.2 %; Mean Corpuscular HGB Conc 34.4 g/dL (31.6-35.5); Mean Corpuscular Hemoglobin 30.9 pg (28.0-33.3); Mean Corpuscular Volume 89.9 fL (83.0-100.0); Mean Platelet Volume 10.7 fL (9.4-12.4); Monocytes # 0.6 K/mcL (0.0-1.3); Monocytes % 7.9 %; Neutrophils # 5.4 K/mcL (1.6-8.9); Platelet Count 144 K/mcL (140-400); Red Blood Count 3.56 M/mcL (3.82-4.97); Segmented Neutrophils % 67.8 %
[2017-06-03 05:17] LABS: BUN/Creatinine Ratio 5 (6-26); Blood Urea Nitrogen 5 mg/dL (6-20); Calcium 8.7 mg/dL (8.6-10.3); Carbon Dioxide 28 mEq/L (23-29); Chloride 107 mEq/L (98-107); Glucose 94 mg/dL (70-105); Osmolality,Calculated 289 (280-300); Phosphorous 4.4 mg/dL (2.7-4.5); Potassium 3.4 mEq/L (3.5-5.1); Sodium 141 mEq/L (136-145); eGFR For African Americans > 60 (> 60); eGFR For Non-African Americans 57 (> 60)
[2017-06-03] MEDS: *HR* LORazepam 2 MG/ML VIAL IVP PRN ×3 (10:49→20:27)
[2017-06-03] MEDS ORDERED: Potassium Chloride Elixir 20 MEQ/15 ML UDC PO ONE (10:54)
--- NOTE | 2017-06-03 10:57 | Internal Med Progress Note ---
Date of Encounter: 06/03/17 Time of Encounter: 11:00 - Assessment and plan (1) Suicidal behavior with attempted self-injury Current Visit: No Status: Acute Assessment and plan: Patient with multiple inpatient psychiatric treatments Recommendations for potential inpatient psychiatric treatment due to patient being a high risk per psychiatry. Psychiatry following (2) Prolonged QT interval Current Visit: Yes Status: Acute Assessment and plan: Secondary to Geodon overdose; QT interval improving Cardiology following and appreciate recommendations. Patient medically clear to proceed to inpatient psych once clear from cardiology (3) Bradycardia Current Visit: Yes Status: Acute Assessment and plan: Patient with heart rate in the 30s this morning and atropine had to be given Cardiology following with recommendations for stress tests on 06/02/17 to evaluate for chronotropic incompetence. Stress test showed appropriate response with HR going up to 129. Clear to proceed to inpatient psych (4) DVT prophylaxis Current Visit: Yes Status: Acute Assessment and plan: SCDs - Time Spent With Patient Total time spent is greater than 50% in coordination of care (as documented) at patient's floor/unit and/or counseling patient: - Subjective Interval history: No acute events overnight - Constitutional Vitals: Temp Pulse Resp BP Pulse Ox 98.4 F 40 18 120/84 95 06/03/17 07:41 06/03/17 07:53 06/03/17 07:41 06/03/17 07:41 06/03/17 07:41 General appearance: Present: A&O X 3, no acute distress, answers questions appropriately - Head Head exam: Present: atraumatic, normocephalic - Eye Eye exam: Present: PERRL, conjuntiva pink, sclera anicteric Pupils: Present: PERRL - Neck Neck exam general surgery: Present: supple, trachea midline. Absent: lymphadenopathy - Respiratory Respiratory exam: Present: CTAB. Absent: accessory muscle use, rales, rhonchi, wheezes - Cardiovascular Cardiovascular exam: Present: RRR, +S1, +S2. Absent: diastolic murmur, gallop, rubs, systolic murmur - GI/Abdominal GI/Abdominal exam: Present: normal bowel sounds, soft, no peritoneal signs. Absent: distended, tenderness - Extremities Exam Extremities exam: Present: warm, radial pulses palpable and symmetrical. Absent : calf tenderness, cyanotic, pedal edema - Neurological Exam Neurological exam: Present: CN II-XII intact, oriented X3, no focal deficits. Absent: pronater drift, facial droop, speech deficit - Skin Skin exam: Present: dry, intact Internal Medicine: Result - Labs CBC & Chem 7: 06/03/17 04:41 06/03/17 04:41 Labs: Short CBC 06/03/17 Range/Units 04:41 WBC 8.0 (4.3-11.1) K/mcL Hgb 11.0 L (11.5-15.4) g/dL Hct 32.0 L (35.3-44.9) % Plt Count 144 (140-400) K/mcL Neutrophils # 5.4 (1.6-8.9) K/mcL BMP 06/03/17 04:41 Sodium 141 Potassium 3.4 L Chloride 107 Carbon Dioxide 28 BUN 5 L Creatinine 1.11 Glucose 94 Calcium 8.7 - VTE Documentation of Mechanical Device: Intermittent pneumatic compression device Consult Discharge Plan - Plan Referrals: Shmuel Kwan [employer]IC[employer] [Non-Partnered Physician] - 06/10/17 11:00 am (please fax a discharge summary to [phone] )
--- NOTE | 2017-06-03 16:42 | Electrocardiograph Report ---
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
[2017-06-04 04:44] LABS: Basophils % 0.3 %; Eosinophils % 0.6 %; Hematocrit 32.8 % (35.3-44.9); Hemoglobin 11.4 g/dL (11.5-15.4); Immature Granulocytes % 0.3 % (0-4); Lymphocytes # 1.8 K/mcL (0.6-4.6); Lymphocytes % 24.6 %; Mean Corpuscular HGB Conc 34.8 g/dL (31.6-35.5); Mean Corpuscular Hemoglobin 31.1 pg (28.0-33.3); Mean Corpuscular Volume 89.6 fL (83.0-100.0); Mean Platelet Volume 10.4 fL (9.4-12.4); Monocytes # 0.7 K/mcL (0.0-1.3); Monocytes % 9.4 %; Neutrophils # 4.6 K/mcL (1.6-8.9); Platelet Count 143 K/mcL (140-400); Red Blood Count 3.66 M/mcL (3.82-4.97); Segmented Neutrophils % 64.8 %
[2017-06-04 05:02] LABS: BUN/Creatinine Ratio 4 (6-26); Blood Urea Nitrogen 4 mg/dL (6-20); Calcium 8.9 mg/dL (8.6-10.3); Carbon Dioxide 27 mEq/L (23-29); Chloride 106 mEq/L (98-107); Glucose 99 mg/dL (70-105); Osmolality,Calculated 289 (280-300); Potassium 3.3 mEq/L (3.5-5.1); Sodium 141 mEq/L (136-145); eGFR For African Americans > 60 (> 60); eGFR For Non-African Americans > 60 (> 60)
[2017-06-04] MEDS: *HR* LORazepam 2 MG/ML VIAL IVP PRN ×3 (08:45→18:47)
--- NOTE | 2017-06-04 11:13 | Internal Med Progress Note ---
Date of Encounter: 06/04/17 Time of Encounter: 11:00 - Assessment and plan (1) Suicidal behavior with attempted self-injury Current Visit: No Status: Acute Assessment and plan: Patient with multiple inpatient psychiatric treatments Recommendations for potential inpatient psychiatric treatment due to patient being a high risk per psychiatry. Psychiatry following (2) Prolonged QT interval Current Visit: Yes Status: Acute Assessment and plan: Secondary to Geodon overdose; QT interval improved to WNL Cardiology following and appreciate recommendations. Patient medically clear to proceed to inpatient psych once clear from cardiology (3) Bradycardia Current Visit: Yes Status: Acute Assessment and plan: Patient with heart rate in the 30s this morning and atropine had to be given Cardiology following with recommendations for stress tests on 06/02/17 to evaluate for chronotropic incompetence. Stress test showed appropriate response with HR going up to 129. Clear to proceed to inpatient psych. Telemetry discontinued (4) DVT prophylaxis Current Visit: Yes Status: Acute Assessment and plan: SCDs - Time Spent With Patient Total time spent is greater than 50% in coordination of care (as documented) at patient's floor/unit and/or counseling patient: - Subjective Interval history: No acute events overnight - Constitutional Vitals: Temp Pulse Resp BP Pulse Ox 97.8 F 71 20 122/72 96 06/04/17 08:34 06/04/17 08:34 06/04/17 08:34 06/04/17 08:34 06/04/17 08:34 General appearance: Present: A&O X 3, no acute distress, answers questions appropriately - Head Head exam: Present: atraumatic, normocephalic - Eye Eye exam: Present: PERRL, conjuntiva pink, sclera anicteric Pupils: Present: PERRL - Neck Neck exam general surgery: Present: supple, trachea midline. Absent: lymphadenopathy - Respiratory Respiratory exam: Present: CTAB. Absent: accessory muscle use, rales, rhonchi, wheezes - Cardiovascular Cardiovascular exam: Present: RRR, +S1, +S2. Absent: diastolic murmur, gallop, rubs, systolic murmur - GI/Abdominal GI/Abdominal exam: Present: normal bowel sounds, soft, no peritoneal signs. Absent: distended, tenderness - Extremities Exam Extremities exam: Present: warm, radial pulses palpable and symmetrical. Absent : calf tenderness, cyanotic, pedal edema - Neurological Exam Neurological exam: Present: CN II-XII intact, oriented X3, no focal deficits. Absent: pronater drift, facial droop, speech deficit - Skin Skin exam: Present: dry, intact Internal Medicine: Result - Labs CBC & Chem 7: 06/04/17 04:30 06/04/17 04:30 Labs: Short CBC 06/04/17 Range/Units 04:30 WBC 7.2 (4.3-11.1) K/mcL Hgb 11.4 L (11.5-15.4) g/dL Hct 32.8 L (35.3-44.9) % Plt Count 143 (140-400) K/mcL Neutrophils # 4.6 (1.6-8.9) K/mcL BMP 06/04/17 04:30 Sodium 141 Potassium 3.3 L Chloride 106 Carbon Dioxide 27 BUN 4 L Creatinine 1.06 Glucose 99 Calcium 8.9 - VTE Documentation of Mechanical Device: Intermittent pneumatic compression device Consult Discharge Plan - Plan Referrals: Shmuel Kwan PRIVATE TUTOR [Non-Partnered Physician] - 06/10/17 11:00 am (please fax a discharge summary to [phone] )
--- NOTE | 2017-06-04 15:04 | Consult Note ---
Date of Encounter: 06/04/17 Time of Encounter: 13:45 Assessment & Recommendation (1) Drug overdose Current visit: No Status: Resolved Qualifiers: Encounter type: subsequent encounter Injury intent: intentional self-harm Qualified Code(s): T50.902D - Poisoning by unspecified drugs, medicaments and biological substances, intentional self-harm, subsequent encounter (2) Suicidal behavior with attempted self-injury Current visit: No Status: Acute Assessment & Recommendation: patient needs psychiatric inpatient. (3) Bipolar disorder, unspecified Current visit: Yes Status: Acute Qualifiers: Active/Remission status: currently active Current bipolar episode type: mixed Current episode severity: severe Psychotic features: without psychotic features Qualified Code(s): F31.63 - Bipolar disorder, current episode mixed, severe, without psychotic features History of Present Illness Patient: known to practice within the last 3 years Requesting Physician: Errol Goldberg Reason for consult: overdose intentionally History of present illness: Ms. Alba is a 31 year old female seen today for follow up. She wants to leave [place] , she has no insight does not feel needs any medication and does not want to be treated. She OD on geodon and was in ICU. Now transfered to medical floor and wants to leave. She is high risk , needs to be monitored closely and will need her to be in patient for her safety . probate will be done and patient will be transfered once medically stable. Thank you for consult. CC: Errol Goldberg Past Med Surg Social Fam HX - Past Medical History Medical history: GERD, migraine, other - Past Psychiatric History Psychiatric history: Reports: bipolar, depression, previous psychiatric hospitalization - Past Surgical History Surgical History: cholecystectomy, hysterectomy - Social History Smoking Status: Current every day smoker Smokeless Tobacco Status: No Alcohol use: occasionally Drug use: none Medications & Allergies Estradiol 0.5 mg PO DAILY 11/17/15 [History] Acetaminophen/Butalbital/Caffe [Fioricet] 1 each PO Q6HR PRN 05/31/17 [History] Amitriptyline [Elavil] 50 mg PO HS 05/31/17 [History] Desvenlafaxine Succinate [Pristiq ER] 100 mg PO DAILY 05/31/17 [History] LORazepam [Ativan] 1 mg PO TID 05/31/17 [History] Ziprasidone HCl [Geodon] 80 mg PO DAILY 05/31/17 [History] 3 Allergy/AdvReac Type Severity Reaction Status Date / Time Penicillins Allergy Difficulty Verified 05/30/17 22:42 Breathing Review of Systems Psychiatric: Reports: depression, anxiety, abnormal sleep pattern, suicidal ideation, change in appetite, hopelessness Psychiatry Exam - Constitutional Vitals: Temp Pulse Resp BP Pulse Ox 97.8 F 71 20 122/72 96 06/04/17 08:34 06/04/17 08:34 06/04/17 08:34 06/04/17 08:34 06/04/17 08:34 General appearance: age & developmentally appropriate, well-groomed, well- nourished - Musculoskeletal Station: relaxed Strength & Tone: normal for patient - Psychiatric Level of alertness: Alert Behavior: uncooperative Eye Contact: Minimal Contact Mood Description: Angry, Anxious, Irritable Affect description: congruent with mood Attention Span Ability: Unable to Sustain Attention Patient Reliability: Questionable Historian Judgment: Poor Insight: Minimal Results - Labs Labs: Laboratory Last Values WBC 7.2 K/mcL (4.3-11.1) 06/04/17 04:30 RBC 3.66 M/mcL (3.82-4.97) L 06/04/17 04:30 Hgb 11.4 g/dL (11.5-15.4) L 06/04/17 04:30 Hct 32.8 % (35.3-44.9) L 06/04/17 04:30 MCV 89.6 fL (83.0-100.0) 06/04/17 04:30 MCH 31.1 pg (28.0-33.3) 06/04/17 04:30 MCHC 34.8 g/dL (31.6-35.5) 06/04/17 04:30 RDW 12.0 % (11.5-14.5) 06/04/17 04:30 Plt Count 143 K/mcL (140-400) 06/04/17 04:30 MPV 10.4 fL (9.4-12.4) 06/04/17 04:30 Immature Gran % 0.3 % (0-4) 06/04/17 04:30 Seg Neutrophils % 64.8 % 06/04/17 04:30 Lymphocytes % 24.6 % 06/04/17 04:30 Monocytes % 9.4 % 06/04/17 04:30 Eosinophils % 0.6 % 06/04/17 04:30 Basophils % 0.3 % 06/04/17 04:30 Neutrophils # 4.6 K/mcL (1.6-8.9) 06/04/17 04:30 Lymphocytes # 1.8 K/mcL (0.6-4.6) 06/04/17 04:30 Monocytes # 0.7 K/mcL (0.0-1.3) 06/04/17 04:30 Eosinophils # 0.0 K/mcL (0.0-0.6) 06/04/17 04:30 Basophils # 0.0 K/mcL (0.0-0.2) 06/04/17 04:30 Nucleated RBCs/100 WBC 0.4 /100 WBC (0) H 05/31/17 09:17 Sodium 141 mEq/L (136-145) 06/04/17 04:30 Potassium 3.3 mEq/L (3.5-5.1) L 06/04/17 04:30 Chloride 106 mEq/L (98-107) 06/04/17 04:30 Carbon Dioxide 27 mEq/L (23-29) 06/04/17 04:30 BUN 4 mg/dL (6-20) L 06/04/17 04:30 Creatinine 1.06 mg/dL (0.60-1.20) 06/04/17 04:30 Est GFR ( Amer) > 60 (> 60) 06/04/17 04:30 Est GFR (Non-Af Amer) > 60 (> 60) 06/04/17 04:30 BUN/Creatinine Ratio 4 (6-26) L 06/04/17 04:30 Glucose 99 mg/dL (70-105) 06/04/17 04:30 POC Glucose 112 mg/dL (70-99) H 06/02/17 06:17 Calculated Osmolality 289 (280-300) 06/04/17 04:30 Calcium 8.9 mg/dL (8.6-10.3) 06/04/17 04:30 Phosphorus 4.4 mg/dL (2.7-4.5) 06/03/17 04:41 Magnesium 2.4 mg/dL (1.6-2.6) 06/01/17 03:56 TSH 2.333 mcIU/mL (0.340-5.600) 06/02/17 04:45 Urine Test Negative (Negative) 05/31/17 18:40 Consult Discharge Plan - Plan Referrals: Shmuel Kwan, TALENT BUYER [Non-Partnered Physician] - 06/10/17 11:00 am (please fax a discharge summary to [phone] )
--- NOTE | 2017-06-04 16:52 | Electrocardiograph Report ---
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
--- NOTE | 2017-06-04 17:00 | Electrocardiograph Report ---
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
--- NOTE | 2017-06-04 17:31 | Electrocardiograph Report ---
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
--- NOTE | 2017-06-04 17:37 | Electrocardiograph Report ---
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
--- NOTE | 2017-06-04 18:23 | Electrocardiograph Report ---
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
--- NOTE | 2017-06-04 19:09 | Electrocardiograph Report ---
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
--- NOTE | 2017-06-04 19:16 | Electrocardiograph Report ---
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
[2017-06-05 05:59] LABS: Basophils % 0.5 %; Eosinophils # 0.1 K/mcL (0.0-0.6); Eosinophils % 0.9 %; Hematocrit 35.3 % (35.3-44.9); Immature Granulocytes % 0.4 % (0-4); Lymphocytes # 2.1 K/mcL (0.6-4.6); Lymphocytes % 27.3 %; Mean Corpuscular Hemoglobin 30.6 pg (28.0-33.3); Mean Corpuscular Volume 90.1 fL (83.0-100.0); Mean Platelet Volume 10.6 fL (9.4-12.4); Monocytes # 0.7 K/mcL (0.0-1.3); Monocytes % 8.5 %; Neutrophils # 4.8 K/mcL (1.6-8.9); Platelet Count 178 K/mcL (140-400); Red Blood Count 3.92 M/mcL (3.82-4.97); Red Cell Distribution Width 12.4 % (11.5-14.5); Segmented Neutrophils % 62.4 %
[2017-06-05 06:18] LABS: BUN/Creatinine Ratio 5 (6-26); Blood Urea Nitrogen 5 mg/dL (6-20); Carbon Dioxide 26 mEq/L (23-29); Chloride 104 mEq/L (98-107); Potassium 3.9 mEq/L (3.5-5.1); Sodium 137 mEq/L (136-145); eGFR For African Americans > 60 (> 60)
[2017-06-05 06:19] LABS: Glucose 92 mg/dL (70-105); Osmolality,Calculated 281 (280-300); eGFR For Non-African Americans > 60 (> 60)
[2017-06-05] MEDS: *HR* LORazepam 2 MG/ML VIAL IVP PRN (10:12)
--- NOTE | 2017-06-05 12:08 | Internal Med Progress Note ---
Date of Encounter: 06/05/17 Time of Encounter: 11:40 - Assessment and plan (1) Suicidal behavior with attempted self-injury Current Visit: No Status: Acute Assessment and plan: Patient with multiple inpatient psychiatric treatments Recommendations for potential inpatient psychiatric treatment due to patient being a high risk per psychiatry. Psychiatry following. Pt is medically clear to proceed to inpatient psych (2) Prolonged QT interval Current Visit: Yes Status: Acute Assessment and plan: Secondary to Geodon overdose; QT interval improved to WNL Cardiology following and appreciate recommendations. Patient medically clear to proceed to inpatient psych. Cleared by cardiology (3) Bradycardia Current Visit: Yes Status: Acute Assessment and plan: Patient with heart rate in the 30s this morning and atropine had to be given Cardiology following with recommendations for stress tests on 06/02/17 to evaluate for chronotropic incompetence. Stress test showed appropriate response with HR going up to 129. Clear to proceed to inpatient psych. Telemetry discontinued (4) DVT prophylaxis Current Visit: Yes Status: Acute Assessment and plan: SCDs (5) Hypokalemia Current Visit: Yes Status: Acute Assessment and plan: Replaced - Time Spent With Patient Total time spent is greater than 50% in coordination of care (as documented) at patient's floor/unit and/or counseling patient: - Subjective Interval history: No acute events overnight - Constitutional Vitals: Temp Pulse Resp BP Pulse Ox 98.4 F 52 16 112/64 97 06/05/17 08:17 06/05/17 08:17 06/05/17 08:17 06/05/17 08:17 06/05/17 08:17 General appearance: Present: A&O X 3, no acute distress, answers questions appropriately - Head Head exam: Present: atraumatic, normocephalic - Eye Eye exam: Present: PERRL, conjuntiva pink, sclera anicteric Pupils: Present: PERRL - Neck Neck exam general surgery: Present: supple, trachea midline. Absent: lymphadenopathy - Respiratory Respiratory exam: Present: CTAB. Absent: accessory muscle use, rales, rhonchi, wheezes - Cardiovascular Cardiovascular exam: Present: RRR, +S1, +S2. Absent: diastolic murmur, gallop, rubs, systolic murmur - GI/Abdominal GI/Abdominal exam: Present: normal bowel sounds, soft, no peritoneal signs. Absent: distended, tenderness - Extremities Exam Extremities exam: Present: warm, radial pulses palpable and symmetrical. Absent : calf tenderness, cyanotic, pedal edema - Neurological Exam Neurological exam: Present: CN II-XII intact, oriented X3, no focal deficits. Absent: pronater drift, facial droop, speech deficit - Skin Skin exam: Present: dry, intact Internal Medicine: Result - Labs CBC & Chem 7: 06/05/17 05:22 06/05/17 05:22 Labs: Short CBC 06/05/17 Range/Units 05:22 WBC 7.6 (4.3-11.1) K/mcL Hgb 12.0 (11.5-15.4) g/dL Hct 35.3 (35.3-44.9) % Plt Count 178 (140-400) K/mcL Neutrophils # 4.8 (1.6-8.9) K/mcL BMP 06/05/17 05:22 Sodium 137 Potassium 3.9 Chloride 104 Carbon Dioxide 26 BUN 5 L Creatinine 1.06 Glucose 92 Calcium 9.0 - VTE Documentation of Mechanical Device: Intermittent pneumatic compression device Consult Discharge Plan - Plan Referrals: Shmuel Kwan [employer] ASSEMBLER [Non-Partnered Physician] - 06/10/17 11:00 am (please fax a discharge summary to [phone] )
[2017-06-05 12:40] VITALS: BP 113/63
--- NOTE | 2017-06-17 07:15 | Discharge Summary ---
Date of Encounter: 06/17/17 Time of Encounter: 12:00 - Discharge Diagnosis (1) Suicidal behavior with attempted self-injury Priority: Primary Status: Acute Assessment and Plan: Patient had overdosed on geodon and was initially admitted for monitoring for prolonged QT interval and bradycardia. Her QT intervals were monitored wth serial EKGS. She also had a stress test done on 06/02 to evaluate for chtonotropic incompetnce because she had bradycardia on admission. Stress test came back WNL. With normalization of her QT interval and resolution of bradycardia, she was cleared to proceed to inpatient psychiatry by cardiology. She was discharged to psychiatry inpatient in a stable condition (2) Prolonged QT interval Priority: Secondary Status: Acute Assessment and Plan: Secondary to Geodon overdose; QT interval improved to WNL Cardiology following and appreciate recommendations. Patient medically clear to proceed to inpatient psych. Cleared by cardiology (3) Bradycardia Priority: Secondary Status: Acute Assessment and Plan: Patient with heart rate in the 30s this morning and atropine had to be given Cardiology following with recommendations for stress tests on 06/02/17 to evaluate for chronotropic incompetence. Stress test showed appropriate response with HR going up to 129. Clear to proceed to inpatient psych. Telemetry discontinued (4) DVT prophylaxis Priority: Secondary Status: Acute Assessment and Plan: SCDs (5) Hypokalemia Priority: Secondary Status: Acute Assessment and Plan: Replaced Hospital course: Ms. Alba is a 31 year old female - Time Spent with Patient Total time spent providing and/or coordinating discharge services: - Discharge Medications Home Medications: Estradiol 0.5 mg PO DAILY 11/17/15 [History] Acetaminophen/Butalbital/Caffe [Fioricet] 1 each PO Q6HR PRN 05/31/17 [History] LORazepam [Ativan] 1 mg PO BID 30 Days #60 tablet 06/09/17 [Rx] lamoTRIgine [Lamictal] 50 mg PO HS #60 tablet 06/09/17 [Rx] traZODone [TraZODone] 50 mg PO HS PRN #30 tablet 06/09/17 [Rx] Allergies/Adverse Reactions: 3 Allergy/AdvReac Type Severity Reaction Status Date / Time Penicillins Allergy Difficulty Verified 05/30/17 22:42 Breathing Date of admission: 05/31/17 04:32 Primary care physician: PCP NONE Consults: 05/31/17 05:02 Consult to Psychiatry [CONS] Routine Consulting Provider: Psychiatry Lena Reason for Consult: Intentional ingestion Call Completed: Yes 05/31/17 16:24 Consult to Cardiology [CONS] Routine Comment: Consulting Provider: Cardiology Cubero Reason for Consult: QT prolongation Call Completed: Yes - Constitutional Vitals: Temp Pulse Resp BP Pulse Ox 98.2 F 51 16 113/63 95 06/05/17 12:39 06/05/17 12:39 06/05/17 12:39 06/05/17 12:39 06/05/17 12:39 General appearance: Present: A&O X 3, no acute distress, answers questions appropriately - Head Head exam: Present: atraumatic, normocephalic - Eye Eye exam: Present: PERRL, conjuntiva pink, sclera anicteric Pupils: Present: PERRL - Neck Neck exam general surgery: Present: supple, trachea midline. Absent: lymphadenopathy - Respiratory Respiratory exam: Present: CTAB. Absent: accessory muscle use, rales, rhonchi, wheezes - Cardiovascular Cardiovascular exam: Present: RRR, +S1, +S2. Absent: diastolic murmur, gallop, rubs, systolic murmur - GI/Abdominal GI/Abdominal exam: Present: normal bowel sounds, soft, no peritoneal signs. Absent: distended, tenderness - Extremities Exam Extremities exam: Present: warm, radial pulses palpable and symmetrical. Absent : calf tenderness, cyanotic, pedal edema - Neurological Exam Neurological exam: Present: CN II-XII intact, oriented X3, no focal deficits. Absent: pronater drift, facial droop, speech deficit - Skin Skin exam: Present: dry, intact - Patient Status Disposition: Transfer Other - Discharge Instructions Follow Up With: Shmuel Kwan [employer] [Non-Partnered Physician] - 06/10/17 11:00 am (please fax a discharge summary to [phone] ) - VTE Documentation of Mechanical Device: Intermittent pneumatic compression device
== END 2017-06-05 15:53 | disposition other institution (70) | DRG 817 ==
LOC: ICNU 04:32 → SUATTDRO 04:32 → 2NNU 06-01 21:02 → 3ANU 06-04 16:36
PROVIDERS: ADMIT Internal Medicine Cardiovascular Disease; ATTEND Student in an Organized Health Care Education/Training Program

== ENCOUNTER 2017-06-05 15:48 | Inpatient (IN) ==
[2017-06-05] MEDS ORDERED: MOM Conc 10 ML UD.LIQ PO PRN (16:17)
[2017-06-05] MEDS ORDERED: *HR* LORazepam 2 MG/ML VIAL IM PRN (16:17)
[2017-06-05] MEDS ORDERED: Mag Hydrox/Al Hydrox/Simeth 30 ML UDC PO PRN (16:17)
[2017-06-05] MEDS ORDERED: Acetaminophen 325 MG TABLET PO PRN (16:17)
[2017-06-05] MEDS ORDERED: *HR* LORazepam 1 MG TABLET PO PRN (16:17)
[2017-06-05] MEDS: lamoTRIgine 25 MG TABLET PO SCH (20:47)
[2017-06-05] MEDS: *HR* LORazepam 1 MG TABLET PO SCH (20:47)
[2017-06-06] MEDS: *HR* LORazepam 1 MG TABLET PO SCH ×3 (08:31→20:56)
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
[2017-06-06] MEDS ORDERED: OLANZAPINE 5 MG PO SCH (18:00)
[2017-06-06] MEDS ORDERED: FLUOXETINE HCL 20 MG PO SCH (18:00)
[2017-06-06] MEDS: OLANZAPINE 5 MG PO SCH (20:55)
[2017-06-06] MEDS: FLUOXETINE HCL 20 MG PO SCH (20:55)
[2017-06-06] MEDS: lamoTRIgine 25 MG TABLET PO SCH (20:56)
[2017-06-07] MEDS: *HR* LORazepam 1 MG TABLET PO SCH ×3 (08:44→20:43)
--- NOTE | 2017-06-07 13:29 | Psychiatry Progress Note ---
Date of Encounter: 06/07/17 Time of Encounter: 13:10 Subjective Interval history: Patient seen today case d/w treatment team . she has been showing some improvement , slept 6 hrs and coming out more but when by her self is very dysphoric. denies side effects. denies suicidal ideation and has probate tomorrow. she is feeling sad but not suicidal. she has been having dysphoric affect. continue monitoring will increase lamictal to 50 mg am. Review of Systems Psychiatric: Reports: depression, anxiety, anhedonia, hopelessness, mood swings Results - Vital Signs Vital Signs: Temp Pulse Resp BP 98 F 90 16 104/64 06/07/17 09:00 06/07/17 09:00 06/07/17 09:00 06/07/17 09:00 Assessment and Plan (1) Bipolar disorder, unspecified Current visit: No Status: Acute Plan: Continue hospitalization, Close observation, Suicide Precautions per unit protocol, Encourage participation in unit milieu, Group Therapy, Monitor sleep, Monitor appetite, Family/Supportive other meeting Risks, benefits, side effects, alternatives discussed w/pt: Yes Patient agreeable to treatment: Yes Qualifiers: Active/Remission status: currently active Current bipolar episode type: mixed Current episode severity: severe Psychotic features: without psychotic features Qualified Code(s): F31.63 - Bipolar disorder, current episode mixed, severe, without psychotic features (2) Suicidal ideation Current visit: No Status: Acute Risks, benefits, side effects, alternatives discussed w/pt: Yes Patient agreeable to treatment: Yes Psychiatry Exam - Constitutional Vitals: Temp Pulse Resp BP 98 F 90 16 104/64 06/07/17 09:00 06/07/17 09:00 06/07/17 09:00 06/07/17 09:00 General appearance: age & developmentally appropriate, well-groomed, well- nourished - Musculoskeletal Gait: slow Station: relaxed Strength & Tone: normal for patient - Psychiatric Patient Orientation: Yes Person, Yes Time, Yes Place Level of alertness: Alert Behavior: cooperative, withdrawn Psychomotor activity: Slowed Eye Contact: Maintains Eye Contact Mood Description: Depressed, Anxious Affect description: congruent with mood Speech Volume: Normal, Soft/Quiet Speech pattern: normal rate, normal rhythm, normal tone, fluent, spontaneous Language & Vocabulary: consistent with education Thought Process: Slowed Thinking Thought Content: Yes Guilt Perceptual Disturbances: Yes Reacting to internal stimuli Attention Span Ability: Capable of Focused Attention Memory Description: Grossly Intact Patient Reliability: Reliable Historian Fund of knowledge: Yes abstraction ability, Yes aware of current events Intelligence Estimate: Average Judgment: Limited Insight: Partial
[2017-06-07] MEDS: FLUOXETINE HCL 20 MG PO SCH (20:43)
[2017-06-07] MEDS: OLANZAPINE 5 MG PO SCH (20:43)
[2017-06-07] MEDS: lamoTRIgine 25 MG TABLET PO SCH (20:43)
[2017-06-08] MEDS: *HR* LORazepam 1 MG TABLET PO SCH ×3 (08:40→20:50)
--- NOTE | 2017-06-08 11:39 | Psychiatry Progress Note ---
Date of Encounter: 06/08/17 Time of Encounter: 11:15 Subjective Interval history: Patient seen today , case d/w treatment team She remains withdrawn and isolative , as per team has come out more and is eating 100 % now, she is sleeping better, as per her sad because not able to be with her children. she denies suicidal ideation , dysphoric affect , she signed it and therefore probate was cancelled. She has lot of anger about her childhood and parents not in picture. she at present compliant with treatment and unit milieu. denies side effects labs ordered today for hga1c, lipid profile and lamictal increased to 50 mg , ambien dc and trazodone prn started. Review of Systems Psychiatric: Reports: depression, anxiety, anhedonia, hopelessness, mood swings Results - Vital Signs Vital Signs: Temp Pulse Resp BP 97.9 F 85 16 99/68 06/07/17 21:00 06/08/17 09:00 06/08/17 09:00 06/08/17 09:00 Assessment and Plan (1) Bipolar disorder, unspecified Current visit: No Status: Acute Plan: Continue hospitalization, Close observation, Suicide Precautions per unit protocol, Encourage participation in unit milieu, Group Therapy, Monitor sleep, Monitor appetite, Family/Supportive other meeting Risks, benefits, side effects, alternatives discussed w/pt: Yes Patient agreeable to treatment: Yes Qualifiers: Active/Remission status: currently active Current bipolar episode type: mixed Current episode severity: severe Psychotic features: without psychotic features Qualified Code(s): F31.63 - Bipolar disorder, current episode mixed, severe, without psychotic features (2) Suicidal ideation Current visit: No Status: Resolved Plan: Continue hospitalization, Close observation, Suicide Precautions per unit protocol, Encourage participation in unit milieu, Group Therapy, Monitor sleep, Monitor appetite Risks, benefits, side effects, alternatives discussed w/pt: Yes Patient agreeable to treatment: Yes Consult Discharge Plan - Plan Referrals: NONE,PCP [Primary Care Provider] - Psychiatry Exam - Constitutional Vitals: Temp Pulse Resp BP 97.9 F 85 16 99/68 06/07/17 21:00 06/08/17 09:00 06/08/17 09:00 06/08/17 09:00 General appearance: age & developmentally appropriate, well-groomed, well- nourished - Musculoskeletal Gait: normal Station: relaxed Strength & Tone: normal for patient - Psychiatric Patient Orientation: Yes Person, Yes Time, Yes Place Level of alertness: Alert Behavior: cooperative, anxious Psychomotor activity: Normal Eye Contact: Maintains Eye Contact Mood Description: Euthymic/stable, Anxious Affect description: congruent with mood, full range Speech Volume: Soft/Quiet Speech pattern: normal rate, normal rhythm, normal tone, fluent, spontaneous Language & Vocabulary: consistent with education Thought Process: Intact Thought Content: Yes Intact, Yes Guilt Perceptual Disturbances: No Auditory hallucinations, No Visual hallucinations Attention Span Ability: Capable of Focused Attention Memory Description: Grossly Intact Patient Reliability: Reliable Historian Fund of knowledge: Yes abstraction ability, Yes aware of current events Intelligence Estimate: Average Judgment: Limited Insight: Partial
[2017-06-08 12:57] LABS: Estimated Average Glucose 108 mg/dl; Hemoglobin A1C 5.4 %
[2017-06-08 13:33] LABS: Chol/HDL Ratio 3.9 (0-4.9)
[2017-06-08] MEDS: OLANZAPINE 5 MG PO SCH (20:48)
[2017-06-08] MEDS: FLUOXETINE HCL 20 MG PO SCH (20:48)
[2017-06-08] MEDS ORDERED: lamoTRIgine 25 MG TABLET PO SCH (21:00)
[2017-06-08] MEDS ORDERED: traZODone 50 MG TABLET PO PRN (21:00)
[2017-06-09] MEDS: *HR* LORazepam 1 MG TABLET PO SCH ×2 (09:48→15:48)
[2017-06-09 10:05] VITALS: BP 105/65
[2017-06-09] MEDS ORDERED: Nicotine 2 MG GUM BC PRN (13:19)
--- NOTE | 2017-06-09 15:32 | Discharge Summary ---
Date of Encounter: 06/09/17 Time of Encounter: 15:00 Diagnosis - Discharge Diagnosis (1) Bipolar disorder, unspecified Status: Acute Comments: PATIENT IMPROVED A LOT AND AT PRESENT NOT IN DANGER TO SELF/OTHERS. Qualifiers: Active/Remission status: currently active Current bipolar episode type: mixed Current episode severity: severe Psychotic features: without psychotic features Qualified Code(s): F31.63 - Bipolar disorder, current episode mixed, severe, without psychotic features (2) Suicidal ideation Status: Resolved Comments: patient improved with inpatient stabilization and medication management. Medications - Discharge Medications Prescriptions: lamoTRIgine [Lamictal] 50 mg PO HS #60 tablet LORazepam [Ativan] 1 mg PO BID 30 Days #60 tablet traZODone [TraZODone] 50 mg PO HS PRN #30 tablet PRN Reason: Insomnia Estradiol 0.5 mg PO DAILY 11/17/15 [History] Acetaminophen/Butalbital/Caffe [Fioricet] 1 each PO Q6HR PRN 05/31/17 [History] LORazepam [Ativan] 1 mg PO BID 30 Days #60 tablet 06/09/17 [Rx] lamoTRIgine [Lamictal] 50 mg PO HS #60 tablet 06/09/17 [Rx] traZODone [TraZODone] 50 mg PO HS PRN #30 tablet 06/09/17 [Rx] 3 Allergy/AdvReac Type Severity Reaction Status Date / Time Penicillins Allergy Difficulty Verified 05/30/17 22:42 Breathing Results Procedures and tests throughout hospitalization: Completed Lab Orders Category Date Time Status Hgb A1C Routine Lab 06/08/17 11:50 Completed Lipid Panel Routine Lab 06/08/17 11:50 Completed Provider Date of admission: 06/05/17 15:48 Primary care physician: PCP NONE Psychiatry Exam - Constitutional Vitals: Temp Pulse Resp BP 97.7 F 72 16 105/65 06/09/17 09:00 06/09/17 09:00 06/09/17 09:00 06/09/17 09:00 General appearance: age & developmentally appropriate, well-groomed, well- nourished - Musculoskeletal Gait: normal Station: relaxed Strength & Tone: normal for patient - Psychiatric Patient Orientation: Yes Person, Yes Time, Yes Place Level of alertness: Alert Behavior: calm, cooperative, anxious Psychomotor activity: Normal Eye Contact: Maintains Eye Contact Mood Description: Anxious Affect description: congruent with mood, full range Speech Volume: Normal Speech pattern: clear, coherent Language & Vocabulary: consistent with education Thought Process: Intact, Logical Thought Content: Yes Intact Perceptual Disturbances: No Auditory hallucinations, No Visual hallucinations Attention Span Ability: Capable of Focused Attention Memory Description: Grossly Intact Patient Reliability: Reliable Historian Fund of knowledge: Yes abstraction ability, Yes aware of current events Intelligence Estimate: Average Judgment: Fair Insight: Partial Hospital Course Hospital course: Ms. Alba is a 31 year old female who was admitted from Medical floor . s/p OD on Geodon 80 mg 40 tablets and was in ICU as had long QT interval. she has been admitted on probate but then she signed in and has been compliant with treatment team. she has improved in her moods and denies suicidal ideation. she denied side effects, AIMS0 , no other complaint. I had extensive family meeting with her Juwan Alba and education given about compliance and communication between them. During course of hospitalization patient improved in her depression , moods and anxiety , had no suicidal or homicidal ideation. she will be discharged with her and is on Symbyax 6/20 mg, ativan 1 mg bid, lamictal 50 mg hs , Time spent discussing smoking cessation with patient: 3 to 10 minutes Does patient wish to continue nicotine replacement upon disc: No (patient smokes 1/2 ppd.) - Time Spent with Patient Total time spent providing and/or coordinating discharge services: Greater than 30 minutes (had family meeting with her Juwan Alba) Assessment and Plan - Patient/Caregiver Discharge Instructions Activity: resume usual activities as tolerated Diet: regular diet - Follow up Plan Follow up with: Tarik Moraes [Outside] - 06/17/17 12:30 pm (The above appointment is with Nidia Bae for mental health counseling services.) [facility] [Outside] - 08/03/17 1:00 pm (The above appointment is with for [facility] outpatient psychiatric assessment and medication management services. Please arrive 30 minutes early to complete paperwork. Please bring your photo ID (bring proof of address if you do not have an ID) and medication list. The above appointment(s) reflects first availability. You may contact the office regularly to check for cancellations that may allow you to be seen sooner. Additionally, the new family preservation caseworker assigned to you will contact you directly to schedule your intake appointment for case management and mental health counseling services. ) Shmuel Kwan, [employer] [Non-Partnered Physician] - Overall status at discharge: Stable Disposition: Home, Self-Care Quality - Multiple Antipsychotics Patient discharged on 2 or more antipsychotic medications: No Procedures - Procedures Procedures: Medication Management, Crisis Stabilization, Supportive Therapy, Group Therapy, Psychoeducational Therapy
[2017-06-09] MEDS ORDERED: *HR* LORazepam 1 MG TABLET PO SCH (21:00)
== END 2017-06-09 16:10 | disposition home or self-care (01) | DRG 753 ==
LOC: 1ANU 15:48
PROVIDERS: ADMIT Psychiatry & Neurology Psychiatry; ATTEND Psychiatry & Neurology Psychiatry